=== PATIENT | male | born 1955 ===

== ENCOUNTER 2021-11-10 06:43 | Outpatient (REF) | payer OTHER, SELFPAY ==
[2021-11-10 07:11] LABS: MANUAL DIFF FLAG NO
[2021-11-10 07:26] LABS: Basophils Percent Auto 0.7 % (0-2); Eosinophils Absolute Auto 0.1 X10*3/uL (0.0-0.4); Eosinophils Percent Auto 2.9 % (0-4); Hematocrit 46.5 % (42.0-52.0); Hemoglobin 14.9 g/dl (14.0-18.0); Imm Gran Abs Auto 0.01 X10*3/uL (0.00-0.03); Imm Gran Pct Auto 0.2 % (0.0-0.4); Lymphocytes Absolute Auto 1.6 X10*3/uL (1.2-4.9); Mean Corpuscular Hemoglobin 30.1 pg (27.0-33.0); Mean Corpuscular Volume 93.9 fL (80.0-98.0); Mean Platelet Volume 10.3 fL (9.4-12.4); Monocytes Absolute Auto 0.4 X10*3/uL (0.1-1.2); Monocytes Percent Auto 8.6 % (2-11); Neutrophils Percent Auto 48.6 % (45-73); Platelet Count 228 X10*3/uL (160-400); Red Blood Count 4.95 X10*6/uL (4.60-5.80); Red Cell Distribution Width 12.2 % (11.0-16.0); White Blood Count 4.1 X10*3/uL (4.8-10.8)
[2021-11-10 07:41] LABS: Estimated Average Glucose 111 mg/dL; Hemoglobin A1c % 5.5 %
[2021-11-10 08:04] LABS: Alanine Aminotransferase 25 U/L (0-40); Albumin Level 4.4 g/dL (3.5-5.0); Alkaline Phosphatase 107 U/L (39-117); Anion Gap 12 (12-20); Aspartate Amino Transferase 18 U/L (5-37); Bilirubin Total 1.1 mg/dL (0.0-1.0); Blood Urea Nitrogen 13 mg/dL (9-16); Calcium 9.9 mg/dL (8.4-10.2); Carbon Dioxide 29 mmol/L (22-29); Chloride 105 mmol/L (96-108); Cholesterol 245 mg/dL; Estimated Glomerular Filt Rate > 60; Glucose Fasting 104 mg/dL (60-99); HDL Cholesterol 62 mg/dL; LDL Cholesterol Calculated 150 mg/dl; Potassium 4.5 mmol/L (3.3-5.1); Sodium 141 mmol/L (135-145); Total Protein 7.2 g/dL (6.5-8.0); Triglycerides 166 mg/dL
[2021-11-10 08:24] LABS: TSH reflex Free T4 1.83 uIU/mL (0.32-4.0)
[2021-11-10 08:45] LABS: Folate 10.7 ng/mL (> or = 4.0); Vitamin B12 312 pg/mL (200-900)
[2021-11-15 13:36] LABS: Vitamin D 25-OH, D2 <4 ng/mL; Vitamin D 25-OH, D3 32 ng/mL; Vitamin D 25-OH, Total 32 ng/mL (30-100)
== END 2021-11-10 06:44 | disposition home or self-care (01) ==
LOC: HO.LAB 06:43
PROVIDERS: PCP Nurse Practitioner Acute Care; Visit Provider Nurse Practitioner Acute Care
DX: G43.909 Migraine, unspecified, not intractable, without status migrainosus (principal); N40.0 Benign prostatic hyperplasia without lower urinary tract symptoms; E03.9 Hypothyroidism, unspecified
CPT/HCPCS: 36415; 80053; 80061; 82306; 82607; 82746; 83036; 84443; 85025

== ENCOUNTER 2021-12-29 09:52 | Outpatient (REF) | payer OTHER, SELFPAY ==
--- NOTE | ~2021-12-29 | XR_ITS ---
EXAMINATION: XR KNEE, LEFT CLINICAL INFORMATION: Pain COMPARISON: None TECHNIQUE: Four views of the left knee. FINDINGS: Bones and soft tissues are normal. No fracture or joint effusion. Alignment is anatomic. Joint spaces are well maintained. No abnormal soft tissue calcification. XR/XR knee LT 4V IMPRESSION: Normal left knee.
[2021-12-29 11:21] LABS: C Reactive Protein 0.35 mg/dL (< or = 0.50); Rheumatoid Factor < 15.0 IU/mL (<15.0)
[2021-12-29 11:37] LABS: Prostate Specific Antigen Scr 1.05 ng/mL (<0.05-4.0)
[2021-12-29 11:55] LABS: Erythrocyte Sedimentation Rate 2 MM/HR (0-15)
[2021-12-30 14:06] LABS: CRP High Sensitivity 3.2 mg/L
[2022-01-01 14:31] LABS: Cyclic Citrullinated Peptide <16 UNITS
== END 2021-12-29 09:53 | disposition home or self-care (01) ==
LOC: HO.LAB 09:52
PROVIDERS: Visit Provider Nurse Practitioner Family
DX: Z12.5 Encounter for screening for malignant neoplasm of prostate (principal); M25.562 Pain in left knee; N40.0 Benign prostatic hyperplasia without lower urinary tract symptoms
CPT/HCPCS: 36415; 73564; 82550; 84153; 85652; 86140; 86141; 86200; 86431

== ENCOUNTER → 2022-01-18 14:54 | Outpatient (REF) | payer OTHER, SELFPAY | LOC: HO.SL 14:54 | PROVIDERS: Visit Provider Nurse Practitioner Family | DX: G47.33 Obstructive sleep apnea (adult) (pediatric) (principal) | CPT/HCPCS: 95806 ==

== ENCOUNTER 2022-03-23 05:56 | Outpatient (REF) | payer OTHER, SELFPAY ==
[2022-03-23 07:24] LABS: Hematocrit 44.3 % (42.0-52.0); Hemoglobin 14.5 g/dl (14.0-18.0); Mean Corpuscular HGB Conc 32.7 g/dl (31.0-36.0); Mean Corpuscular Hemoglobin 30.5 pg (27.0-33.0); Mean Corpuscular Volume 93.1 fL (80.0-98.0); Mean Platelet Volume 10.8 fL (9.4-12.4); Platelet Count 232 X10*3/uL (160-400); Red Blood Count 4.76 X10*6/uL (4.60-5.80); Red Cell Distribution Width 12.3 % (11.0-16.0); White Blood Count 4.8 X10*3/uL (4.8-10.8)
[2022-03-23 07:41] LABS: Alanine Aminotransferase 29 U/L (0-40); Alkaline Phosphatase 92 U/L (39-117); Anion Gap 14 (12-20); Aspartate Amino Transferase 18 U/L (5-37); Bilirubin Total 0.8 mg/dL (0.0-1.0); Blood Urea Nitrogen 17 mg/dL (9-16); Calcium 9.1 mg/dL (8.4-10.2); Carbon Dioxide 27 mmol/L (22-29); Chloride 106 mmol/L (96-108); Cholesterol 222 mg/dL; Estimated Glomerular Filt Rate > 60; Glucose Fasting 82 mg/dL (60-99); HDL Cholesterol 64 mg/dL; LDL Cholesterol Calculated 131 mg/dl; Potassium 4.1 mmol/L (3.3-5.1); Sodium 143 mmol/L (135-145); Total Protein 6.5 g/dL (6.5-8.0); Triglycerides 139 mg/dL
[2022-03-23 08:04] LABS: TSH reflex Free T4 3.86 uIU/mL (0.32-4.0)
== END 2022-03-23 05:57 | disposition home or self-care (01) ==
LOC: HO.LAB 05:56
PROVIDERS: PCP Physician Assistant; Visit Provider Physician Assistant
DX: E03.8 Other specified hypothyroidism (principal); E06.3 Autoimmune thyroiditis
CPT/HCPCS: 36415; 80053; 80061; 84443; 85027

== ENCOUNTER 2022-04-02 14:08 | Outpatient (REF) | payer OTHER, SELFPAY ==
--- NOTE | ~2022-04-02 | CT_ITS ---
EXAMINATION: CT SINUS WITHOUT CONTRAST CLINICAL INFORMATION: Nasal polyp. COMPARISON: CT sinus noncontrast 06/04/2014 TECHNIQUE: Axial CT of the sinuses is performed without contrast. Additional 2-D coronal and sagittal reformatted images are generated on the CT workstation and uploaded to PACS. This CT examination was performed using dose optimization techniques as appropriate, variously including the following: *Automated exposure control *Adjustment of mA and/or kV according to patient size (this includes techniques or standardized protocols for targeted exams where dose is matched to indication/reason for exam; i.e. extremities or head) *Use of iterative reconstruction technique DLP: 99 mGy-cm FINDINGS: These sinuses show no air-fluid levels. The frontal, sphenoid, and ethmoid sinuses are well-aerated and clear. No mucosal thickening or polypoid mass. Left maxillary sinus has small retention cyst lateral antrum only 5 mm in height, similar to borderline decreased from prior CT 2014. Left ostiomeatal complex clear. Right maxillary sinusitis has 4 mm polyp/focal mucosal thickening at the maxillary side right ostiomeatal complex, no significant change. Remainder of the right maxillary sinus is well-aerated and clear. The nasal turbinates are symmetric. Mild pneumatization superior left again seen as incidental finding. There is borderline leftward bowing of the septum, stable. The nasopharynx is clear. The craniocervical junction is normal. Again, there are prominent bilateral styloid processes as previously described with mineralization stylohyoid ligaments. This may be associated with Lower Brule syndrome if applicable. The middle ears and mastoid air cells are clear. No fluid levels. CT/CT sinus wo con IMPRESSION: -No sinus fluid levels. No interval mucosal thickening or interval polypoid mass from CT 2014. -Small left maxillary antral retention cyst similar to borderline decreased. -Small polyp/focal mucosal thickening 3-4 mm maxillary side right ostiomeatal complex, no significant change.
--- NOTE | 2022-04-02 16:02 | PFT_ITS ---
FLOWS: FEV1 112% of predicted at 2.90 L. FVC 101% of predicted at 3.48 L. FEV1 to FVC ratio of 0.83. No bronchodilator response. LUNG VOLUMES: Total lung capacity 95% of predicted at 5.35 L. Residual volume 94% of predicted at 1.87 L. Slow vital capacity 96% of predicted at 3.48 L. Expiratory reserve volume 108% of predicted at 0.96 L. Diffusion capacity is normal. IMPRESSION: No obstructive or restrictive ventilatory defect. No bronchodilator response. Essentially normal pulmonary function test. MD CHLOE Monroy/MODL / [id number]
== END 2022-04-02 14:09 | disposition home or self-care (01) ==
LOC: HO.RESP 14:08
PROVIDERS: PCP Physician Assistant; Visit Provider Physician Assistant
DX: R06.02 Shortness of breath (principal); J33.9 Nasal polyp, unspecified
CPT/HCPCS: 70486; 94060; 94727; 94729

== ENCOUNTER → 2022-04-05 09:54 | Outpatient (BNVA) | payer OTHER, MEDICAID, SELFPAY | PROVIDERS: PCP Physician Assistant; Visit Provider Nurse Practitioner Family | DX: G47.33 Obstructive sleep apnea (adult) (pediatric) (principal) | CPT/HCPCS: 99202 ==

== ENCOUNTER 2022-04-06 15:28 | Emergency (ER) | payer OTHER, MEDICAID, SELFPAY ==
--- NOTE | ~2022-04-06 | CT_ITS ---
EXAMINATION: CT ABDOMEN AND PELVIS WITHOUT CONTRAST CLINICAL INFORMATION: Left lower quadrant pain. Concern for diverticulitis. COMPARISON: None TECHNIQUE: Multidetector volumetric imaging was performed from the superior aspect of the liver through the pubic symphysis. Sagittal and coronal reformatted images were obtained on the technologist's workstation. This CT examination was performed using dose optimization techniques as appropriate, variously including the following: *Automated exposure control *Adjustment of mA and/or kV according to patient size (this includes techniques or standardized protocols for targeted exams where dose is matched to indication/reason for exam; i.e. extremities or head) *Use of iterative reconstruction technique DLP: 449 mGy-cm FINDINGS: LUNG BASES: The visualized lung bases are unremarkable. LIVER, GALLBLADDER, AND BILIARY TREE: The liver is normal in size, shape, and attenuation. No focal hepatic lesion or biliary ductal dilatation is present. Small calcified gallstone at the neck of the gallbladder. No gallbladder wall thickening or edema around the gallbladder. No bile duct dilatation. PANCREAS: Unremarkable. SPLEEN: Unremarkable. ADRENAL GLANDS: Unremarkable. KIDNEYS AND URETERS: The kidneys are normal in size, shape, and attenuation. No hydronephrosis, hydroureter, or calculi seen. No perinephric stranding. BLADDER: Unremarkable. GASTROINTESTINAL TRACT: The small and large bowel are unremarkable. The appendix is unremarkable. ABDOMINAL WALL: No significant hernia is appreciated. MESENTERY: There is epiploic appendagitis in the left lower quadrant in the pericolonic fat which lies adjacent to the junction of the descending colon and sigmoid colon.. No free fluid or free air. No abscess. LYMPH NODES: Normal. VASCULAR: Unremarkable. PELVIC VISCERA: Unremarkable. OSSEOUS STRUCTURES: Unremarkable. CT/CT abdomen pelvis wo con IMPRESSION: There is epiploic appendagitis in the left lower quadrant in the pericolonic fat which lies adjacent to the junction of the descending colon and sigmoid colon.. No acute change of bowel. Fleischner guidelines were followed.
[2022-04-06 16:53] VITALS: BP 134/72; PULSE 55; RESP 16; TEMP 36.6; O2SAT 99; BMI 25.6
[2022-04-06 18:52] LABS: Hematocrit 44.2 % (42.0-52.0); Hemoglobin 14.5 g/dl (14.0-18.0); Mean Corpuscular HGB Conc 32.8 g/dl (31.0-36.0); Mean Corpuscular Hemoglobin 30.4 pg (27.0-33.0); Mean Corpuscular Volume 92.7 fL (80.0-98.0); Mean Platelet Volume 10.2 fL (9.4-12.4); Platelet Count 226 X10*3/uL (160-400); Red Blood Count 4.77 X10*6/uL (4.60-5.80); Red Cell Distribution Width 12.3 % (11.0-16.0); White Blood Count 4.7 X10*3/uL (4.8-10.8)
[2022-04-06 19:06] LABS: Anion Gap 13 (12-20); Blood Urea Nitrogen 18 mg/dL (9-16); Calcium 9.6 mg/dL (8.4-10.2); Carbon Dioxide 29 mmol/L (22-29); Chloride 105 mmol/L (96-108); Creatinine Clr Calc Pharmacy 54.1; Estimated Glomerular Filt Rate > 60; Glucose Random 111 mg/dL (60-115); Potassium 4.9 mmol/L (3.3-5.1); Sodium 142 mmol/L (135-145)
[2022-04-06 21:14] VITALS: BP 156/71; PULSE 54; O2SAT 97
[2022-04-06 21:22] VITALS: BP 159/75; PULSE 52; RESP 20; TEMP 36.6; O2SAT 100
[2022-04-06 23:02] VITALS: BP 135/70; PULSE 61; RESP 18; O2SAT 97
--- NOTE | 2022-04-06 23:06 | ED.ABDPAIN ---
HPI - Abdominal Pain General Chief Complaint: Abdominal Pain Stated Complaint: lower l side abd pain Time Seen by Provider: 04/06/22 23:05 Source: patient Mode of arrival: ambulatory Limitations: no limitations History of Present Illness HPI narrative: Patient with no significant abdominal complaints in the past had rectal bleed for 1 week started 2 weeks ago after taking NSAID without any significant abdominal pain stool was brown mixed with bright red blood lasted for 1 week for 1 week patient been doing fine the last 2 days patient noticed pain in the left lower quadrant with normal bowel movements pain is getting worse since last night worse on ambulation and while moving bowels no fever no chills no nausea no vomiting feels hungry no history of diverticulitis patient does have history of hemorrhoids status post multiple rectal surgeries Related Data Home Medications Medication Instructions Recorded Confirmed fluticasone propionate 50 2 spray intranasal DAILY 12/29/21 03/22/22 mcg/actuation nasal spray,suspension Previous Rx's Medication Instructions Recorded prednisolone acetate 1 % eye 1 drp ophthalmic (eye) TID #10 mL 11/09/21 drops,suspension CPAP (CPAP Machine/Device) #1 ea 03/06/22 albuterol sulfate 90 mcg/actuation 1 inh inhalation QID PRN shortness 03/06/22 aerosol inhaler of breath or wheezing 30 days #8.5 grams levothyroxine 75 mcg tablet 75 mcg PO DAILY #90 tabs 03/27/22 tamsulosin 0.4 mg capsule 0.4 mg PO DAILY #90 caps 03/27/22 Allergies Allergy/AdvReac Type Severity Reaction Status Date / Time aspirin Allergy Unknown nausa Verified 04/05/22 09:59 diclofenac AdvReac Mild blood in Verified 04/05/22 09:59 stools Review of Systems Review of Systems Yes all other systems are reviewed and are negative [facility] Past Medical History Medical History BPH (benign prostatic hyperplasia) Hypothyroid Surgical History History of hemorrhoidectomy History of inguinal hernia repair Family History Family History Mother No problems noted. Father No problems noted. Social History Social History Housing: House Alcohol intake: never Patient Tobacco Use Status: Never used Tobacco e-Cigarette/Vaping Use: Never Used Second Hand Smoke Exposure: No Advance Directives: No service: No Current occupational status: retired Cognitive needs: No Hearing needs: No Vision needs: Yes (glasses) Physical Exam ED Vital Signs: Vital Signs - 24 hr 04/06/22 16:53 04/06/22 21:14 04/06/22 21:22 Temperature 97.8 F 97.9 F Pulse Rate 55 54 52 Respiratory Rate 16 20 Blood Pressure 134/72 156/71 H 159/75 H Pulse Oximetry 99 97 100 Oxygen Delivery Method Room Air Room Air Room Air 04/06/22 23:02 Temperature Pulse Rate 61 Respiratory Rate 18 Blood Pressure 135/70 Pulse Oximetry 97 Oxygen Delivery Method Room Air BMI result Body Mass Index 25.6 Appearance: Alert. Oriented X3. No acute distress. Eyes: No pallor or icterus ENT: Pharynx normal. Oral Mucosa moist Neck: Normal inspection. Neck supple. CVS: Normal heart rate and rhythm. Pulses normal. Respiratory: No respiratory distress. Equal air entry bilateral, no wheezing/rales/rhonchi Abdomen: Soft , deep tenderness suprapubic and left lower quadrant Bowel sounds are present, no mass palpable, no CVA tenderness Skin: Skin warm and dry. Normal skin color. Normal skin turgor. Extremities: No lower extremity edema. No calf tenderness Neuro: Oriented X 3. No motor deficit. MDM - Abdominal Pain MDM Narrative Medical decision making narrative: Patient with lower abdominal pain CT scan negative for anything acute except epiploic appendagitis patient refused take any pain medication feeling much better discharge patient home patient does have history of hemorrhoids and had multiple surgeries in the past likely the cause for rectal bleed 1 week ago Lab Data Attestation: I reviewed the patient's lab results. Result diagrams: 04/06/22 18:45 04/06/22 18:45 Labs: Lab Results 04/06/22 04/06/22 Range/Units 18:45 18:45 WBC 4.7 L (4.8-10.8) X10*3/uL RBC 4.77 (4.60-5.80) X10*6/uL Hgb 14.5 (14.0-18.0) g/dl Hct 44.2 (42.0-52.0) % MCV 92.7 (80.0-98.0) fL MCH 30.4 (27.0-33.0) pg MCHC 32.8 (31.0-36.0) g/dl RDW 12.3 (11.0-16.0) % Plt Count 226 (160-400) X10*3/uL MPV 10.2 (9.4-12.4) fL Absolute Nucleated RBC 0.000 (0.0-0.012) X10*3/uL Nucleated RBC % (auto) 0.0 (0.0-0.2) /100WBC Sodium 142 (135-145) mmol/L Potassium 4.9 (3.3-5.1) mmol/L Chloride 105 (96-108) mmol/L Carbon Dioxide 29 (22-29) mmol/L Anion Gap 13 (12-20) BUN 18 H (9-16) mg/dL Creatinine 1.08 (0.5-1.4) mg/dL Estim Creat Clear Calc 54.1 Estimated GFR > 60 Random Glucose 111 (60-115) mg/dL Calcium 9.6 (8.4-10.2) mg/dL Imaging Data CT scan - abdomen: Radiologist's impression: CT/CT abdomen pelvis wo con IMPRESSION: There is epiploic appendagitis in the left lower quadrant in the pericolonic fat which lies adjacent to the junction of the descending colon and sigmoid colon.. No acute change of bowel. ? Discharge Plan Discharge Clinical Impression: Epiploic appendagitis Patient Disposition: Home, Self-Care Instructions: Abdominal Pain (ED) Additional Instructions: The pain in abdomen is from epiploic appendagitis which is from decreased blood supply to the fat outside the bowel loops Treatment is usually pain medication If pain gets worse need to see a surgeon or come back to the ER Prescriptions: No Action prednisolone acetate 1 % drops,suspension 1 drp ophthalmic (eye) TID Qty: 10 0RF tamsulosin 0.4 mg capsule 0.4 mg PO DAILY Qty: 90 1RF levothyroxine 75 mcg tablet 75 mcg PO DAILY Qty: 90 1RF (DME) CPAP Machine/Device Device See Rx Instructions .Route Qty: 1 0RF Rx Instructions: As directed albuterol sulfate 90 mcg/actuation HFA aerosol inhaler 1 inh inhalation QID PRN (Reason: shortness of breath or wheezing) 30 Days Qty: 8.5 0RF fluticasone propionate 50 mcg/actuation spray,suspension 2 spray intranasal DAILY Referrals: Mikey Farrar MD [Physician] - 1 week
[2022-04-06] MEDS: 0.9 % Sodium Chloride 1,000 ML 999 ML IV (23:52)
== END 2022-04-07 00:35 | disposition home or self-care (01) ==
PROVIDERS: Emergency Provider Internal Medicine; PCP Physician Assistant
DX: R10.32 Left lower quadrant pain (principal); K63.89 Other specified diseases of intestine; Z79.899 Other long term (current) drug therapy
CPT/HCPCS: 36415; 74176; 80048; 85027; 96374; 99284

== ENCOUNTER → 2022-04-11 08:20 | Outpatient (BNVA) | payer OTHER, MEDICAID, SELFPAY | PROVIDERS: PCP Physician Assistant; Visit Provider Physician Assistant | DX: Z12.11 Encounter for screening for malignant neoplasm of colon (principal); K21.9 Gastro-esophageal reflux disease without esophagitis; K62.5 Hemorrhage of anus and rectum; K64.9 Unspecified hemorrhoids; G47.33 Obstructive sleep apnea (adult) (pediatric); Z78.9 Other specified health status | CPT/HCPCS: 99202; 99212 ==

== ENCOUNTER 2022-10-01 09:26 | Outpatient (REF) | payer OTHER, SELFPAY ==
--- NOTE | ~2022-10-01 | XR_ITS ---
EXAMINATION: XR LUMBOSACRAL SPINE WITH OBLIQUES CLINICAL INFORMATION: Low back pain. COMPARISON: CT abdomen of 04/06/2022. TECHNIQUE: AP, both oblique, and lateral views of the lumbar spine. Lateral view of the lumbosacral junction. FINDINGS: There are 5 nonrib-bearing lumbar vertebra. No acute fracture, spondylolisthesis, spondylolysis is identified. Disc spaces are maintained except for mild narrowing of the L5-S1 disc space. There is bilateral facet arthropathy noted at the L4-L5 and L5-S1 levels. Pedicles intact. Sacroiliac joints unremarkable. XR/XR lumbar spine 4V min IMPRESSION: Facet arthropathy L4-S1.
== END 2022-10-01 09:27 | disposition home or self-care (01) ==
LOC: HO.XRAY 09:26
PROVIDERS: PCP Physician Assistant; Visit Provider Nurse Practitioner Acute Care
DX: M54.50 Low back pain, unspecified (principal); M79.605 Pain in left leg
CPT/HCPCS: 72110

== ENCOUNTER → 2022-10-10 07:38 | Outpatient (BNVA) | payer OTHER, SELFPAY | PROVIDERS: PCP Physician Assistant; Visit Provider Nurse Practitioner Family | DX: G47.33 Obstructive sleep apnea (adult) (pediatric) (principal); Z99.89 Dependence on other enabling machines and devices | CPT/HCPCS: 99212 ==

== ENCOUNTER 2022-12-04 06:58 | Outpatient (REF) | payer OTHER, SELFPAY ==
[2022-12-04 07:58] LABS: Hematocrit 46.2 % (42.0-52.0); Mean Corpuscular HGB Conc 32.5 g/dl (31.0-36.0); Mean Corpuscular Hemoglobin 30.1 pg (27.0-33.0); Mean Corpuscular Volume 92.8 fL (80.0-98.0); Mean Platelet Volume 10.6 fL (9.4-12.4); Platelet Count 214 X10*3/uL (160-400); Red Blood Count 4.98 X10*6/uL (4.60-5.80); Red Cell Distribution Width 11.7 % (11.0-16.0)
[2022-12-04 08:50] LABS: Alanine Aminotransferase 20 U/L (0-40); Albumin Level 4.4 g/dL (3.5-5.0); Alkaline Phosphatase 117 U/L (39-117); Anion Gap 15 (12-20); Aspartate Amino Transferase 19 U/L (5-37); Blood Urea Nitrogen 17 mg/dL (9-16); Calcium 9.6 mg/dL (8.4-10.2); Carbon Dioxide 26 mmol/L (22-29); Chloride 106 mmol/L (96-108); Cholesterol 275 mg/dL; Estimated Glomerular Filt Rate > 60; Glucose Fasting 85 mg/dL (60-99); HDL Cholesterol 54 mg/dL; LDL Cholesterol Calculated 185 mg/dl; Potassium 4.6 mmol/L (3.3-5.1); Prostate Specific Antigen Scr 1.39 ng/mL (<0.05-4.0); Sodium 142 mmol/L (135-145); TSH reflex Free T4 0.57 uIU/mL (0.32-4.0); Total Protein 6.9 g/dL (6.5-8.0); Triglycerides 184 mg/dL
== END 2022-12-04 06:59 | disposition home or self-care (01) ==
LOC: HO.LAB 06:58
PROVIDERS: PCP Physician Assistant; Visit Provider Physician Assistant
DX: Z12.5 Encounter for screening for malignant neoplasm of prostate (principal); E03.8 Other specified hypothyroidism; E06.3 Autoimmune thyroiditis; N52.9 Male erectile dysfunction, unspecified
CPT/HCPCS: 36415; 80053; 80061; 84153; 84443; 85027

== ENCOUNTER 2023-01-04 09:48 | Outpatient (REF) | payer OTHER, SELFPAY ==
--- NOTE | ~2023-01-04 | XR_ITS ---
EXAMINATION: XR RIGHT WRIST XR LEFT WRIST XR RIGHT FOOT XR LEFT FOOT CLINICAL INFORMATION: Rheumatoid arthritis. COMPARISON: None TECHNIQUE: AP, lateral and oblique views of each hand/wrist. AP, lateral and oblique views of each foot. FINDINGS: RIGHT Hand/Wrist: Alignment is anatomic. Mild diffuse interphalangeal joint space narrowing. Joint space narrowing of the first MTP joint. No bony erosions. No displaced fracture. Mild generalized prominence of the soft tissues. Foot: Alignment is anatomic. Mild diffuse interphalangeal joint space narrowing. No bony erosions. No displaced fracture. LEFT Hand/Wrist: Alignment is anatomic. Mild diffuse interphalangeal joint space narrowing. Joint space narrowing of the first MTP joint. No bony erosions. No displaced fracture. Mild generalized prominence of the soft tissues. Foot: Alignment is anatomic. Mild diffuse interphalangeal joint space narrowing. No bony erosions. No displaced fracture. XR/XR hand wrist LT IMPRESSION: As above.
--- NOTE | ~2023-01-04 | XR_ITS ---
EXAMINATION: XR RIGHT WRIST XR LEFT WRIST XR RIGHT FOOT XR LEFT FOOT CLINICAL INFORMATION: Rheumatoid arthritis. COMPARISON: None TECHNIQUE: AP, lateral and oblique views of each hand/wrist. AP, lateral and oblique views of each foot. FINDINGS: RIGHT Hand/Wrist: Alignment is anatomic. Mild diffuse interphalangeal joint space narrowing. Joint space narrowing of the first MTP joint. No bony erosions. No displaced fracture. Mild generalized prominence of the soft tissues. Foot: Alignment is anatomic. Mild diffuse interphalangeal joint space narrowing. No bony erosions. No displaced fracture. LEFT Hand/Wrist: Alignment is anatomic. Mild diffuse interphalangeal joint space narrowing. Joint space narrowing of the first MTP joint. No bony erosions. No displaced fracture. Mild generalized prominence of the soft tissues. Foot: Alignment is anatomic. Mild diffuse interphalangeal joint space narrowing. No bony erosions. No displaced fracture. XR/XR hand wrist RT IMPRESSION: As above.
--- NOTE | ~2023-01-04 | XR_ITS ---
EXAMINATION: XR RIGHT WRIST XR LEFT WRIST XR RIGHT FOOT XR LEFT FOOT CLINICAL INFORMATION: Rheumatoid arthritis. COMPARISON: None TECHNIQUE: AP, lateral and oblique views of each hand/wrist. AP, lateral and oblique views of each foot. FINDINGS: RIGHT Hand/Wrist: Alignment is anatomic. Mild diffuse interphalangeal joint space narrowing. Joint space narrowing of the first MTP joint. No bony erosions. No displaced fracture. Mild generalized prominence of the soft tissues. Foot: Alignment is anatomic. Mild diffuse interphalangeal joint space narrowing. No bony erosions. No displaced fracture. LEFT Hand/Wrist: Alignment is anatomic. Mild diffuse interphalangeal joint space narrowing. Joint space narrowing of the first MTP joint. No bony erosions. No displaced fracture. Mild generalized prominence of the soft tissues. Foot: Alignment is anatomic. Mild diffuse interphalangeal joint space narrowing. No bony erosions. No displaced fracture. XR/XR foot LT min 3V IMPRESSION: As above.
--- NOTE | ~2023-01-04 | XR_ITS ---
EXAMINATION: XR RIGHT WRIST XR LEFT WRIST XR RIGHT FOOT XR LEFT FOOT CLINICAL INFORMATION: Rheumatoid arthritis. COMPARISON: None TECHNIQUE: AP, lateral and oblique views of each hand/wrist. AP, lateral and oblique views of each foot. FINDINGS: RIGHT Hand/Wrist: Alignment is anatomic. Mild diffuse interphalangeal joint space narrowing. Joint space narrowing of the first MTP joint. No bony erosions. No displaced fracture. Mild generalized prominence of the soft tissues. Foot: Alignment is anatomic. Mild diffuse interphalangeal joint space narrowing. No bony erosions. No displaced fracture. LEFT Hand/Wrist: Alignment is anatomic. Mild diffuse interphalangeal joint space narrowing. Joint space narrowing of the first MTP joint. No bony erosions. No displaced fracture. Mild generalized prominence of the soft tissues. Foot: Alignment is anatomic. Mild diffuse interphalangeal joint space narrowing. No bony erosions. No displaced fracture. XR/XR foot RT min 3V IMPRESSION: As above.
== END 2023-01-04 09:49 | disposition home or self-care (01) ==
LOC: HO.XRAY 09:48
PROVIDERS: PCP Physician Assistant; Visit Provider Student in an Organized Health Care Education/Training Program
DX: M06.9 Rheumatoid arthritis, unspecified (principal)
CPT/HCPCS: 73110; 73130; 73630; 99202

== ENCOUNTER 2023-01-04 10:44 | Outpatient (REF) | payer OTHER, SELFPAY ==
[2023-01-04 13:24] LABS: MANUAL DIFF FLAG NO
[2023-01-04 13:34] LABS: Basophils Percent Auto 1.1 % (0-2); Eosinophils Absolute Auto 0.1 X10*3/uL (0.0-0.4); Eosinophils Percent Auto 1.9 % (0-4); Hematocrit 44.9 % (42.0-52.0); Hemoglobin 14.8 g/dl (14.0-18.0); Imm Gran Abs Auto 0.01 X10*3/uL (0.00-0.03); Imm Gran Pct Auto 0.3 % (0.0-0.4); Lymphocytes Absolute Auto 1.4 X10*3/uL (1.2-4.9); Lymphocytes Percent Auto 37.8 % (20-40); Mean Corpuscular Hemoglobin 30.6 pg (27.0-33.0); Mean Corpuscular Volume 92.8 fL (80.0-98.0); Mean Platelet Volume 11.2 fL (9.4-12.4); Monocytes Absolute Auto 0.5 X10*3/uL (0.1-1.2); Monocytes Percent Auto 12.6 % (2-11); Neutrophils Absolute Auto 1.7 x10*3/uL (2.0-8.3); Neutrophils Percent Auto 46.3 % (45-73); Platelet Count 232 X10*3/uL (160-400); Red Blood Count 4.84 X10*6/uL (4.60-5.80); Red Cell Distribution Width 12.1 % (11.0-16.0); White Blood Count 3.7 X10*3/uL (4.8-10.8)
[2023-01-04 13:49] LABS: Alanine Aminotransferase 19 U/L (0-40); Albumin Level 4.4 g/dL (3.5-5.0); Alkaline Phosphatase 118 U/L (39-117); Anion Gap 11 (12-20); Aspartate Amino Transferase 17 U/L (5-37); Bilirubin Total 0.7 mg/dL (0.0-1.0); Blood Urea Nitrogen 20 mg/dL (9-16); C Reactive Protein 0.34 mg/dL (< or = 0.50); Calcium 9.9 mg/dL (8.4-10.2); Carbon Dioxide 27 mmol/L (22-29); Chloride 108 mmol/L (96-108); Estimated Glomerular Filt Rate > 60; Glucose Random 97 mg/dL (60-115); Potassium 4.1 mmol/L (3.3-5.1); Rheumatoid Factor < 13.0 IU/mL (<15.0); Sodium 142 mmol/L (135-145); Total Protein 7.1 g/dL (6.5-8.0)
[2023-01-04 14:20] LABS: Erythrocyte Sedimentation Rate 2 MM/HR (0-15)
[2023-01-07 13:13] LABS: Cyclic Citrullinated Peptide <16 UNITS
== END 2023-01-04 10:45 | disposition home or self-care (01) ==
LOC: HO.10HDL 10:44
PROVIDERS: Visit Provider Student in an Organized Health Care Education/Training Program
DX: M06.9 Rheumatoid arthritis, unspecified (principal)
CPT/HCPCS: 36415; 80053; 85025; 85652; 86140; 86200; 86431

== ENCOUNTER 2023-01-16 08:00 | Outpatient (RCR) | payer OTHER, SELFPAY ==
--- NOTE | 2022-12-10 12:02 | MHC.PT.EP ---
[facility] [place] Office [place] Office [place] Office [address] Shannon Verma [address] [phone] F: [phone] F: [phone] F: [phone] F: [phone] Physical Therapy Plan of Care Date of Evaluation: Date of Surgery: Diagnosis: THORACIC, THORACOLUMBAR AND LUMBOSACRAL INTERVERT DISC DISORDER Assessment: 67 YO MALE REF TO PT FOR LBP AND RADIC Lt LE SXS x 4-5 MONTHS. HE IS RETIRED AND RESIDES W HIS IN A 2 LEVEL HOME. Pt HAS DECR POSTURAL AWARENESS, DECR FLEXIB IN Lt > Rt LE, HABITUAL USE OF TRUNK FLEX, DEFICIENT SQUAT MECHANICS, DECR LUMBOPELVIC STAB, AND INTERMITTENT Lt LE RADIC SXS L4/L5/S1 DERM. RECENT XRAYS REVEALED IN PART, There is bilateral facet arthropathy noted at the L4-L5 and L5-S1 levels . Pt WOULD BENEFIT FROM PT TO ADDRESS THE ABOVE FINDINGS, DEV A HEP, PAIN MGMT, AND SX MGMT TECHN. Frequency and Duration: The patient will be seen 1 x WK x 6 WKS Short Term Goals: *DECR LBP TO 2-3/10 AND DECR Lt LE SXS BY 75% *Pt DEMON APPROP SQUAT MECH W 3:3 SIMUL ADLS *IMPROVE HIP FLEXIB Retirement Goals: *Pt WILL IMPROVE LUMBOPELVIC/ LEs STRENGTH, WFL SYMMETRY *Pt RESUME REG ADLs AND FITNESS ROUTINE EVIDENT W IMPROVED OSWESTRY SCORE (AT EVAL ) *Pt INDEP W PROGR HEP AND SELF-SX MGMT TECHN Treatment Plan: Modalities to reduce pain, spasms and effusion. Manual therapy to restore motion and function. Therapeutic exercise to improve strength and flexibility. Neuromuscular re-education for posture and balance. Therapeutic activities to return to functional activities of daily living. Electronically signed by: GRAZYNA ALMAGUER,PT Please sign and return to therapist. Thank you for your referral.
--- NOTE | 2023-02-22 13:15 | MHC.PT.DC ---
[facility] [place] Office [place] Office [place] [facility] [address] Shannon Verma [address] [phone] F: [phone] F: [phone] F: [phone] F: [phone] Physical Therapy Discharge Report Diagnosis: THORACIC, THORACOLUMBAR AND LUMBOSACRAL INTERVERT DISC DISORDER Date of Surgery: Date of Evaluation: 12/10/22 Date of Discharge: 02/22/23 Treatments to Date: 4 Cancellations to Date: 1 No Shows to Date: 0 Discharge Status: Achieved Goals Improved Function Independent with HEP Discharge Summary: THE Pt ADVANCED W PT INTERVENTION FOR MULTIPLE AREAS OF PAIN- HIS SXS LOCALIZED AND HE HAD MINIMAL LBP. THE Pt IS INDEP W HEP AND DEMON IMPROVED BODY MECH. HE IS D/C AT THIS TIME HE FELT READY TO CONT W HEP. Electronically signed by: GRAZYNA ALMAGUER,PT Please sign and return to therapist. Thank you for your referral.
== END 2023-02-22 13:15 | disposition home or self-care (01) ==
LOC: HO.PT 08:00
PROVIDERS: PCP Physician Assistant; Visit Provider Physician Assistant
DX: M51.9 Unspecified thoracic, thoracolumbar and lumbosacral intervertebral disc disorder (principal)
CPT/HCPCS: 97110; 97161; 97530

== ENCOUNTER 2023-02-06 10:22 | Day surgery (SDC) | payer OTHER, SELFPAY ==
[2023-02-01 15:03] VITALS: BMI 27.1
[2023-02-04 11:00] VITALS: BMI 26.6
--- NOTE | 2023-02-05 11:44 | P.CONAN_ITS ---
Documented by User: Vicky Rocha NP 02/05/23 11:44 HPI - Anesthesia Eval Consult details Narrative: 67yo M for Upper Endoscopy and Colonoscopy [facility] Active Problems Active Problems: All Active Problems (Updated 01/09/23 @ 09:14 by Ramon Ugalde PA-C) BPPV (benign paroxysmal positional vertigo) (Acute) Hyperlipidemia (Acute) Lumbar radicular pain (Acute) Low back pain radiating to left leg (Acute) Erectile dysfunction (Acute) Tendinitis of extensor tendon of hand (Acute) Bilateral hand pain (Acute) Cyst of maxillary sinus (Acute) Acid reflux (Acute) Poor historian (Acute) Hemorrhoids (Acute) Rectal bleeding (Acute) Encounter for screening colonoscopy (Acute) AYESHA (generalized anxiety disorder) (Acute) Moderate recurrent major depression (Acute) Bloody stools (Acute) BRAXTON (obstructive sleep apnea) (Acute) SOB (shortness of breath) on exertion (Acute) Keratosis (Acute) Moderate obstructive sleep apnea (Acute) Polyarthralgia (Acute) Hypothyroid (Acute) BPH (benign prostatic hyperplasia) (Acute) Multiple allergies (Acute) Corneal irritation of right eye (Acute) Migraine (Acute) Allergic rhinitis (Acute) Ocular pain, right eye (Acute) Encounter to establish care (Acute) [place] of right eye (Acute) Mild depression (Acute) Anxiety (Acute) Physical exam (Acute) Sleep apnea (Acute) Anxiety and depression (Acute) Left knee pain (Acute) Hand joint pain (Acute) Past Medical History Medical History BPH (benign prostatic hyperplasia) Hypothyroid Family History Family History Mother No problems noted. Father No problems noted. Surgical History Surgical History History of hemorrhoidectomy History of inguinal hernia repair Hx of colonoscopy Social History Social History Housing: House Are you a primary healthcare science specialist to a significant other at home: No Do you presently have visiting nurse or other home services: No Alcohol intake: never Patient Tobacco Use Status: Never used Tobacco e-Cigarette/Vaping Use: Never Used Second Hand Smoke Exposure: No Use of substances other than those prescribed or required for medical reasons: No Have you been hit, kicked, punched, or otherwise hurt by someone within the past year? If so, by whom?: No Confucianist Healthcare Practices: Synagogue Are you DNR?: No Advance Directives: No Advance Directives Information Provided: Yes Advance Directives on File: No Recently lost weight without trying: No Nutrition Risks: No Nutritional Risk Poor oral hygiene: No service: No Current occupational status: previously employed and retired Current occupation: used to work in [employer] retired 2019 Cognitive needs: No Hearing needs: No Vision needs: Yes (glasses) Meds Allergies Allergy/AdvReac Type Severity Reaction Status Date / Time aspirin AdvReac Intermediate blood in Verified 02/04/23 10:59 stools diclofenac AdvReac Intermediate blood in Verified 02/04/23 10:59 stools NSAIDS (Non-Steroidal AdvReac Intermediate Blood in Verified 02/04/23 10:59 Anti-Inflamma stools Home Medications Medication Instructions Recorded Confirmed Last Taken Type tadalafil 5 mg tablet 5 mg PO DAILY 11/13/22 01/09/23 Unknown History Exam Exam Date and Time: February 05, 2023 1144 Height,Weight and Vital Signs: Height 5 ft 3 in Weight 68.039 kg Pertinent Lab Results Pertinent Lab Results: Laboratory Tests 01/04/23 01/04/23 10:47 10:47 WBC 3.7 L Hgb 14.8 Hct 44.9 Plt Count 232 Sodium 142 Potassium 4.1 Chloride 108 Carbon Dioxide 27 BUN 20 H Creatinine 1.04 Assessment and Plan Assessment Anesthesia Assessment: Chart Reviewed Documented by User: Alia Stephens MD 02/06/23 10:44 PMFSH Past Medical History Medical History BPH (benign prostatic hyperplasia) Hypothyroid Family History Family History Mother No problems noted. Father No problems noted. Family history of problems with anesthesia: No Surgical History Surgical History History of hemorrhoidectomy History of inguinal hernia repair Hx of colonoscopy History of Problems with Anesthesia: No Social History Social History Housing: House Are you a primary healthcare science specialist to a significant other at home: No Do you presently have visiting nurse or other home services: No Alcohol intake: never Patient Tobacco Use Status: Never used Tobacco e-Cigarette/Vaping Use: Never Used Second Hand Smoke Exposure: No Use of substances other than those prescribed or required for medical reasons: No Have you been hit, kicked, punched, or otherwise hurt by someone within the past year? 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 Cognitive needs: No Hearing needs: No Vision needs: Yes (glasses) Meds Allergies Allergy/AdvReac Type Severity Reaction Status Date / Time aspirin AdvReac Intermediate blood in Verified 02/04/23 10:59 stools diclofenac AdvReac Intermediate blood in Verified 02/04/23 10:59 stools NSAIDS (Non-Steroidal AdvReac Intermediate Blood in Verified 02/04/23 10:59 Anti-Inflamma stools Home Medications Medication Instructions Recorded Confirmed Last Taken Type tadalafil 5 mg tablet 5 mg PO DAILY 11/13/22 01/09/23 Unknown History Exam Airway Mallampati Class: II (caps laterally) TM Dist: >3cm Neck ROM: Full Heart: rrr Lungs: cta Assessment and Plan Assessment Anesthesia Assessment: Anesthesia Plan Discussed Final Anesthetic Review Family History of Problems with Anesthesia: No History of Problems with Anesthesia: No NPO: Yes ASA Class: II Final Preanesthetic Review: No Changes in Pt Med Stat, Meds/Allgs Chart Reviewed and Consent Obtained/Reviewed Patient Risk: Intermediate Procedure Risk: Intermediate Anesthetic Plan Anesthetic Plan: MAC: Disposition: Standard PACU
[2023-02-06] MEDS: Lactated Ringers 1,000 ML 100 ML IVCONT (10:59)
[2023-02-06 11:00] VITALS: BP 146/76; PULSE 73; RESP 16; TEMP 36.1; O2SAT 99
--- NOTE | 2023-02-06 11:14 | MHC.SHP ---
Pre-Procedural Eval Section A Date of Service: 02/06/23 Section B Chief Complaint: GERD and screening Relevant Family History (Specify if Yes): No Relevant Social History: None Present Medications: see Short Stay Collaborative assessment Medical History: Significant History (BPH (benign prostatic hyperplasia) Hypothyroid, [place], migraine) History of Previous Operations: Relevant previous surgery/procedure and date(s) (History of hemorrhoidectomy History of inguinal hernia repair Hx of colonoscopy) Allergies: Allergies Allergy/AdvReac Type Severity Reaction Status Date / Time aspirin AdvReac Intermediate blood in Verified 02/04/23 10:59 stools diclofenac AdvReac Intermediate blood in Verified 02/04/23 10:59 stools NSAIDS (Non-Steroidal AdvReac Intermediate Blood in Verified 02/04/23 10:59 Anti-Inflamma stools Review of Systems Sugical H&P ROS: Negative: Constitution, Cardiovascular, Respiratory, Neurological, Psychiatric, Hem-Onc, Allergic/Immunologic, Gastrointestinal, Genitourinary, Musculoskeletal, Integumentary, Endocrine and Eyes/Ears/Nose/Throat Exam Surgical H&P Exam: Normal: HEENT, Normal: Heart, Normal: Lungs, Normal: Extremities, Normal: Abdomen, Normal: Skin and Normal: Neurological Plan Diagnosis/Plan: Unchanged I have reviewed the history and physical and performed a pertinent physical examination on my patient. No changes have occurred unless specified. Time Spent With Patient Time: Total time managing care of this patient today ____ minutes.
--- NOTE | 2023-02-06 11:17 | P.OP_ITS ---
Operative Note Operative Note Date of Service: 02/06/23 Narrative: Operative Information Procedure Description: EGD, Colonoscopy Indication: GERD, screening Anesthesia: MAC FLEXIBLE TRANSORAL UPPER GASTROINTESTINAL ENDOSCOPY AND COLONOSCOPY PROCEDURE NOTE UPPER ENDOSCOPY Consent: Indications for the procedure and potential complications of bleeding, perforation, reaction to medications and missed diagnosis were discussed with the patient and informed consent was obtained. Instrument: Olympus GIF H 190 J mid size upper endoscope Monitoring: Vital signs and clinical assessment, continuous EKG monitoring, Pulse oximetry, Carbon Dioxide monitoring and blood pressure monitoring were done throughout the procedure. Procedure: The patient was placed in the left lateral decubitis position and pre-procedure medications were administered and a bite block was placed. The endoscope was inserted into the mouth and advanced under direct vision to the third part of duodenum. A careful inspection was made as the upper endoscope was withdrawn including a retroflexed examination of the proximal stomach; Findings and interventions are described below. Findings: Larynx:normal Esophagus: GE junction at 36 cm, diaphragm hiatus at 40 cm, consistent with 4 cm sliding hiatal hernia, distal esophagus bx taken Stomach: Mild erythema. Biopsies were obtained. Grade 3 flap valve on retroflexed examination of the cardia with incompetent LES Duodenum: Normal bulb and descending duodenum, Intervention: Biopsies as noted above COLONOSCOPY Instrument: Olympus variable stiffness pediatric scope 190L Colonoscopy Monitoring: Vital signs and clinical assessment, continuous EKG monitoring, Pulse oximetry, Carbon Dioxide monitoring and blood pressure monitoring were done throughout the procedure. Colon withdrawal time was 6 minutes. Procedure: The patient was placed in the left lateral decubitis position and pre-procedure medications were administered. After a digital rectal examination of the ano-rectum, the video colonoscope was inserted into the rectum and advanced through the colon to the cecum/TI. The colonoscope was slowly withdrawn in a retrograde panoramic fashion and the colon mucosa was carefully examined including a retroflexed view of the rectum. Findings and interventions are described below. Procedure Difficulty: easy Findings: Terminal Ileum-normal Cecum:normal Ascending Colon: normal Transverse Colon -normal Descending Colon:normal Sigmoid Colon: moderate diverticulosis Rectum: Retroflexion with medium sized internal hemorrhoids, grade I Anorectum - normal Colon preparation: [place] Bowel Preparation Scale Right colon; 3 Transverse colon: 3 Left colon; 3 (0 = Unprepared colon segment with mucosa not seen due to solid stool that cannot be cleared. 1 = Portion of mucosa of the colon segment seen, but other areas of the colon segment not well seen due to staining, residual stool and/or opaque liquid. 2 = Minor amount of residual staining, small fragments of stool and/or opaque liquid, but mucosa of colon segment seen well. 3 = Entire mucosa of colon segment seen well with no residual staining, small fragments of stool or opaque liquid) Impression and Post Procedure Diagnosis: Endoscopy Findings: hiatal hernia incompetent LES gastritis Colonoscopy Findings: internal hemorrhoids diverticular disease Plan: Await Pathology results Repeat Colonoscopy in 10 years or earlier if clinically indicated High fiber diet leaflet avoid straining at stool, epsom salts and sitz bath, anusol supps or cream GERD precautions, if ongoing sx can refer for fundoplication and hernia repair. Above findings were reviewed with the patient and relevant handouts were provided if indicated.
[2023-02-06 11:49] VITALS: BP 99/61; PULSE 67; RESP 16; TEMP 36.4; O2SAT 97
[2023-02-06 12:04] VITALS: BP 123/78; PULSE 64; RESP 16; O2SAT 100
== END 2023-02-06 13:11 | disposition home or self-care (01) ==
PROVIDERS: PCP Physician Assistant; Visit Provider Internal Medicine Gastroenterology
PROC: (CPT 43239; principal; 2023-02-06 11:50)
DX: Z12.11 Encounter for screening for malignant neoplasm of colon (principal); K57.30 Diverticulosis of large intestine without perforation or abscess without bleeding; K64.0 First degree hemorrhoids; K21.9 Gastro-esophageal reflux disease without esophagitis; K29.50 Unspecified chronic gastritis without bleeding; K22.4 Dyskinesia of esophagus; K44.9 Diaphragmatic hernia without obstruction or gangrene; N40.0 Benign prostatic hyperplasia without lower urinary tract symptoms; E03.9 Hypothyroidism, unspecified; G47.33 Obstructive sleep apnea (adult) (pediatric); Z99.89 Dependence on other enabling machines and devices; Z79.51 Long term (current) use of inhaled steroids; Z79.899 Other long term (current) drug therapy; Z88.8 Allergy status to other drugs, medicaments and biological substances; Z78.9 Other specified health status
CPT/HCPCS: 43239; G0121; 88305; 88342

== ENCOUNTER 2023-03-15 07:32 | Outpatient (AMB) | payer OTHER, MEDICAID, SELFPAY ==
[2023-03-15 08:19] VITALS: BP 112/60; PULSE 64; TEMP 36.4; O2SAT 98; BMI 26.3
--- NOTE | 2023-03-15 08:19 | A.OFFVIS_ITS ---
Intake Vital Signs 03/15/23 08:19 Height 5 ft 3 in Weight 148 lb 9.465 oz BMI 26.3 BP 112/60 Blood Pressure Location Rt brachial Position Sitting Pulse 64 Pulse Source Pulse Oximeter Temp 97.5 F Temp Source Skin Pulse Oximetry (%) 98 Intake Visit Reasons: joint pain Intake Note: Pt seen today for joint pain folow up. States he is doing the same, morning stiffness. Fisheries Officer Required: No Accompanied by: Self / Same As Patient Allergies aspirin Adverse Reaction (Intermediate, Verified 03/15/23 08:21) blood in stools diclofenac Adverse Reaction (Intermediate, Verified 03/15/23 08:21) blood in stools NSAIDS (Non-Steroidal Anti-Inflamma Adverse Reaction (Intermediate, Verified 03/15/23 08:21) Blood in stools Medication List - Last Reconciled 03/15/23 by Jose Oscar MD albuterol sulfate 90 mcg/actuation 1 inh inhalation QID PRN 30 days cetirizine 10 mg PO DAILY 30 days CPAP (CPAP Machine/Device) As directed fluticasone propionate 50 mcg/actuation sprays intranasal levothyroxine 75 mcg PO DAILY omeprazole 20 mg PO DAILY phenylephrine-cocoa butter 0.25-88.44 % (Hemorrhoidal (phenyleph-cocoa)) 1 supp [place] BEDTIME PRN tadalafil 5 mg PO DAILY tamsulosin 0.4 mg PO DAILY HPI HPI Comments History of Present Illness Details Patient returns for follow-up after completion of his blood work and x- rays. He took the prednisone taper as prescribed without much relief. He feels about the same overall. Initial history: This is a 67-year-old male who presents for evaluation of bilateral hand pain the condition started 2-3 years ago. With patient noticing pain and stiffness of his hands worse on the right. 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 2-3 years ago he was told this can be carpal tunnel and received a steroid injection in his hands which did not provide much relief. Currently patient states that he has pain and stiffness of his hands especially when he does manual work at home. The pain and stiffness is usually worse in the middle of the night when he wakes up to go to the bathroom. His fingers hurt when it bumps against anything. He has morning stiffness of his hands and feet lasting 2 hours. He used to take NSAIDs but stopped as he had hemorrhoids. He also applies creams which provided little relief. He is unaware of any family history of autoimmune rheumatic disease. Denies any skin rashes. [facility] Medical History BPH (benign prostatic hyperplasia) Hypothyroid Surgical History History of esophagogastroduodenoscopy (EGD) History of hemorrhoidectomy History of inguinal hernia repair Hx of colonoscopy Family History Mother No problems noted. Father No problems noted. Social History Housing: House Are you a primary career placement specialist to a significant other at home: No Do you presently have visiting nurse or other home services: No Alcohol intake: never Patient Tobacco Use Status: Never used Tobacco e-Cigarette/Vaping Use: Never Used Second Hand Smoke Exposure: No service: No Current occupational status: previously employed and retired Current occupation: used to work in [employer] retired 2019 Cognitive needs: No Hearing needs: No Vision needs: Yes (glasses) Review of Systems Musc Reports arthralgias and Reports stiffness Physical Exam Vital Signs: Last Vital Signs Temp 97.5 F 03/15/23 08:19 Pulse 64 03/15/23 08:19 BP 112/60 03/15/23 08:19 Pulse Ox 98 03/15/23 08:19 BMI result Body Mass Index 26.3 Const General: cooperative, healthy appearing and comfortable Nutritional Appearance: overweight Orientation/consciousness: patient oriented x3 Limitations: no limitations HEENT Head: Yes normocephalic and Yes atraumatic Resp Effort & Inspection: normal respiratory effort and able to speak in complete sentences Skin General skin exam: no rashes or lesions noted Neuro General: patient oriented x3 Extrem Other: No wrist swelling or tenderness or pain with full flexion and extension No PIP swelling or tenderness today Negative MCP squeeze test bilaterally today No tender flexor or extensor tenderness bilaterally Normal range of motion of both elbows and shoulders without pain Normal nailfold capillaroscopy Assessment & Plan Assessment & Plan (1) Bilateral hand pain: Code(s): M79.641 - Pain in right hand; M79.642 - Pain in left hand Plan: This is a 67-year-old male who presents for evaluation of bilateral hand pain. Labs show negative RF/CCP with normal inflammatory markers. X-rays of hands and feet showed no signs of erosive changes, mild degenerative changes. There are no signs of autoimmune rheumatic disease upon my evaluation today. Patient's symptoms are likely mechanical/degenerative in nature. Advised patient to try using Voltaren gel on affected areas. Can also try Tumeric Follow-up in 1 year Coding Level of Care Code Est Pt Level 3 (88426) Diagnoses Bilateral hand pain M79.641; M79.642
== END 2023-03-15 09:22 | disposition home or self-care (01) ==
PROVIDERS: PCP Physician Assistant; Visit Provider Student in an Organized Health Care Education/Training Program
DX: M79.641 Pain in right hand (principal); M79.642 Pain in left hand
CPT/HCPCS: 99213

== ENCOUNTER → 2023-03-15 07:32 | Outpatient (BNVA) | payer OTHER, SELFPAY | PROVIDERS: PCP Physician Assistant; Visit Provider Student in an Organized Health Care Education/Training Program | DX: M79.641 Pain in right hand (principal); M79.642 Pain in left hand | CPT/HCPCS: 99212 ==

== ENCOUNTER 2023-04-25 06:52 | Outpatient (REF) | payer OTHER, MEDICAID, SELFPAY ==
[2023-04-25 08:35] LABS: Cholesterol 208 mg/dL (<200); HDL Cholesterol 53 mg/dL (>40); LDL Cholesterol Calculated 123 mg/dL (<100); Triglycerides 161 mg/dL (<150)
== END 2023-04-25 06:53 | disposition home or self-care (01) ==
LOC: HO.LAB 06:52
PROVIDERS: PCP Physician Assistant; Visit Provider Physician Assistant
DX: E78.5 Hyperlipidemia, unspecified (principal)
CPT/HCPCS: 36415; 80061

== ENCOUNTER 2023-08-22 08:18 | Outpatient (AMB) | payer OTHER, SELFPAY ==
[2023-08-22 08:21] VITALS: BP 122/74; PULSE 68; O2SAT 97; BMI 26.7
--- NOTE | 2023-08-22 08:21 | MHC.PC.OV ---
Vital Signs 08/22/23 08:21 Height 5 ft 3 in Weight 151 lb BMI 26.7 BP 122/74 Blood Pressure Location Lt brachial Position Sitting Pulse 68 Pulse Source Pulse Oximeter Pulse Oximetry (%) 97 Oxygen Delivery Method Room Air Intake Visit Reasons: pain in right hand Allergies aspirin Adverse Reaction (Intermediate, Verified 08/22/23 09:03) blood in stools diclofenac Adverse Reaction (Intermediate, Verified 08/22/23 09:03) blood in stools NSAIDS (Non-Steroidal Anti-Inflamma Adverse Reaction (Intermediate, Verified 08/22/23 09:03) Blood in stools Medication List - Last Reconciled 08/22/23 by Anselmo Thomas MD albuterol sulfate 90 mcg/actuation 1 inh inhalation QID PRN 30 days cetirizine 10 mg PO DAILY 30 days CPAP (CPAP Machine/Device) As directed fluticasone propionate 50 mcg/actuation sprays intranasal levothyroxine 75 mcg PO DAILY omeprazole 20 mg PO DAILY phenylephrine-cocoa butter 0.25-88.44 % (Hemorrhoidal (phenyleph-cocoa)) 1 supp [place] BEDTIME PRN tadalafil 5 mg PO DAILY tamsulosin 0.4 mg PO DAILY Tobacco use date assessed: 08/22/23 Fall risk assessment: No Falls in past year Last assessed Fall Risk: 08/22/23 Dental Screening Dental Screen Date: 08/22/23 Did you have a dental visit in the last 12 months?: No Did you have a dental problem in the last 6 months where you did not have access to dental care?: No Was dental information given to patient?: Patient has dentist HPI pain in right hand HPI Details 68-year-old male presents to the office for a follow-up visit. I am covering for his primary care provider. Patient is complaining of increased stiffness in both hands and new elbow pain in the past few months. 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 Also complaining of bumps being formed around the joints. He has trouble picking up kitchen utensils and on more than 1 occasion things have dropped from his hand. He was seen by a c d still operator a few months ago but never followed up. Patient was given prednisone at that office visit but he never took the medication for fear of bleeding. [facility] Medical History BPH (benign prostatic hyperplasia) Hypothyroid Surgical History History of esophagogastroduodenoscopy (EGD) History of hemorrhoidectomy History of inguinal hernia repair Hx of colonoscopy Family History Mother No problems noted. Father No problems noted. Social History Housing: House Are you a primary before and after school daycare worker to a significant other at home: No Do you presently have visiting nurse or other home services: No Alcohol intake: never Patient Tobacco Use Status: Never used Tobacco e-Cigarette/Vaping Use: Never Used Second Hand Smoke Exposure: No service: No Current occupational status: previously employed and retired Current occupation: used to work in [employer] retired 2020 Cognitive needs: No Hearing needs: No Vision needs: Yes (glasses) Questionnaire PHQ-9 Over the last 2 weeks, how often have you been bothered by any of the following problems? 1. Little interest or pleasure in doing things: several days 2. Feeling down, depressed, or hopeless: several days 3. Trouble falling or staying asleep, or sleeping too much: not at all 4. Feeling tired or having little energy: not at all 5. Poor appetite or overeating: not at all 6. Feeling bad about yourself - or that you are a failure or have let yourself or your family down: not at all 7. Trouble concentrating on things, such as reading the newspaper or watching television: not at all 8. Moving or speaking so slowly that other people could have noticed. Or the opposite - being so fidgety or restless that you have been moving around a lot more than usual: not at all 9. Thoughts that you would be better off or of hurting yourself in some way: not at all Total score: 2 Depression Screening Interpretation: Negative Depression Screening Done: Yes Source: Developed by Drs. Tyson Hagan, Zaida Pierre, Elroy Tan and colleagues, with an educational binta from [employer]. Thrive Questionnaire Date Thrive assessed: 08/22/23 I am a: Patient What is your living situation today?: I have a steady place to live Within the past 12 months, did the food you bought not last and you didn't have the money to get more?: Never true Within the past 12 months, did you worry whether your food would run out before you got money to buy more?: Never true Do you have trouble paying for medicines?: No Do you have trouble getting transportation to medical appointments?: No Do you have trouble paying your heating and electricity bill?: No Do you have trouble taking care of your child, family member or friend?: No Do you have trouble with day-to-day activities such as bathing, preparing meals, shopping, managing finances, etc.?: No Are you currently unemployed and looking for a job?: No Are you interested in more education?: No Currently or been in a relationship where the following occur: no concerns reported AUDIT C Alcohol Use Questionnaire (AUDIT-C) 1. How often do you have a drink containing alcohol?: Never 3. How often do you have six or more drinks on one occasion?: Never Total Score: 0 AYESHA-7 AMB Questionnaire AYESHA-7 Date AYESHA - 7 assessed: 08/22/23 Feeling nervous, anxious, or on edge: 0 = Not at all Not being able to stop or control worryin = Not at all Worrying too much about different things: 0 = Not at all Trouble relaxin = Not at all Being so restless that it is hard to sit still: 0 = Not at all Becoming easily annoyed or irritable: 0 = Not at all Feeling afraid as if something awful might happen: 0 = Not at all Total AYESHA-7 score (0-4 normal; 5-9 mild; 10-14 moderate; 15-21 severe): 0 Source: Developed by Drs. Tyson Hagan, Zaida Pierre, Elroy Tan and colleagues, with an educational binta from [employer]. Physical exam (Primary Care) Vital Signs: Last Vital Signs Pulse 68 08/22/23 08:21 BP 122/74 08/22/23 08:21 Pulse Ox 97 08/22/23 08:21 Oxygen Delivery Method Room Air 08/22/23 08:21 BMI result Body Mass Index 26.7 Tobacco/Smoking Status: Tobacco use Status Tobacco use date assessed 08/22/23 08/22/23 08:26 Patient Tobacco Use Status Never used Tobacco 08/22/23 08:26 e-Cigarette/Vaping Use Never Used 08/22/23 08:26 PHQ-9: PHQ-9 Score PHQ-9: Total score 2 08/22/23 08:26 Depression Screening Interpretation: Negative Thrive Assessment: Date of Thrive Assessment Date Thrive assessed 08/22/23 08/22/23 08:26 Currently or been in a relationship where the following occur: no concerns reported Const General: cooperative and healthy appearing Nutritional Appearance: well nourished Orientation/consciousness: patient oriented x3 Limitations: no limitations HENMT Head: Yes normal to inspection Eyes General: appearance normal, both eyes and all related structures Neck Neck: Yes normal visual inspection Chest Chest palpation & inspection: normal palpation of entire chest wall Resp Effort & Inspection: normal respiratory effort Neuro General: patient oriented x3 Extrem Other: Right and left hands: Symmetrical swelling in the DIP joints of both hands. Tenderness in the synovium of the right elbow. Full range of motion with minimal discomfort. Assessment and Plan Assessment & Plan (1) Osteoarthritis of hands, bilateral: Code(s): M19.041 - Primary osteoarthritis, right hand; M19.042 - Primary osteoarthritis, left hand Plan: 20 minutes spent in reviewing the chart. I informed the patient that he did not get the blood work ordered by the c d still operator and encouraged him to get the same today. Most likely his symptoms are due to osteoarthritis. Long-term use of nonsteroidals need to be planned. A follow-up appointment with the c d still operator will be arranged. Patient verbally understanding. Coding Level of Care Code Est Pt Level 4 (37163) Diagnoses Osteoarthritis of hands, bilateral M19.041; M19.042 Additional Codes PHQ-9 - 19098 - PHQ-9 Billing: ([id number])
== END 2023-08-22 09:05 | disposition home or self-care (01) ==
PROVIDERS: PCP Physician Assistant; Visit Provider Internal Medicine
DX: M19.041 Primary osteoarthritis, right hand (principal); M19.042 Primary osteoarthritis, left hand
CPT/HCPCS: 99214

== ENCOUNTER 2023-08-22 09:12 | Outpatient (REF) | payer OTHER, SELFPAY | END 2023-08-22 09:13 | disposition home or self-care (01) | LOC: HO.LAB 09:12 | PROVIDERS: PCP Physician Assistant; Visit Provider Student in an Organized Health Care Education/Training Program | DX: E78.2 Mixed hyperlipidemia (principal); E03.8 Other specified hypothyroidism; E06.3 Autoimmune thyroiditis | CPT/HCPCS: 36415; 80061; 84443 ==

== ENCOUNTER 2023-09-02 07:14 | Outpatient (REF) | payer OTHER, SELFPAY ==
[2023-09-02 07:50] LABS: Appearance Urine Clear; Color Urine Yellow; Glucose Urine UA Negative (Negative); Leukocyte Esterase Urine Trace (Negative); Nitrite Urine Negative (Negative); PH 5.5 (5.0-9.0); UMIC TRIGGER UA YES; Urine Blood Negative (Negative); Urine Ketones Negative (Negative); Urine Protein Negative (Neg-Trace)
[2023-09-02 07:55] LABS: Bacteria Urine None Seen (None Seen); Hyaline Casts Urine 0-2 /LPF (0-2); RBC Urine 0-2 /HPF (0-2); Squamous Epithelial Cell Urine 0-2 /HPF (0-2); WBC Urine 0-5 /HPF (0-5)
[2023-09-02 08:23] LABS: Creatinine Urine 116.01 mg/dL; Total Protein Urine Random < 7 mg/dL (<12)
[2023-09-02 08:24] LABS: HBc Num1 0.03 S/CO (0.00-0.79); Hepatitis A Antibody IgM 0.28 Index (0-0.79); Hepatitis B Core Antibody Nonreactive (Nonreactive); Hepatitis B Surface Antigen Negative (Negative); ~HepC Num1 0.08 S/CO (0.00-0.79); ~Hepatitis A Antibody IgM Nonreactive (Nonreactive); ~Hepatitis B Surface Antibody NONREACTIVE (Nonreactive); ~Hepatitis C Antibody Nonreactive (Nonreactive)
[2023-09-03 19:17] LABS: Complement C3 119 mg/dL (82-185)
[2023-09-04 10:49] LABS: Prot Elec - Albumin 4.3 g/dL (3.8-4.8); Prot Elec - Alpha1 0.2 g/dL (0.2-0.3); Prot Elec - Alpha2 0.6 g/dL (0.5-0.9); Prot Elec - Beta 1 0.4 g/dL (0.4-0.6); Prot Elec - Beta 2 0.4 g/dL (0.2-0.5); Prot Elec - Gamma 0.8 g/dL (0.8-1.7); Prot Elec - Total Protein 6.7 g/dL (6.1-8.1)
[2023-09-04 11:13] LABS: Anti Nuclear Antibody Screen NEGATIVE (NEGATIVE)
[2023-09-04 19:13] LABS: Anti DNA DS Antibody <1 IU/mL; Antibody to SS-A Antigen <1.0 NEG AI (<1.0 NEG); Antibody to SS-B Antigen <1.0 NEG AI (<1.0 NEG); SM/Ribonucleoprotein Ab <1.0 NEG AI (<1.0 NEG); Smith Protein <1.0 NEG AI (<1.0 NEG)
[2023-09-05 07:38] LABS: TS Negative Control Passed; TS Panel A 0; TS Panel B 1; TS Positive Control Passed; TSpotTB Negative (Negative)
[2023-09-05 14:48] LABS: IgA 303 mg/dL (70-320); IgG 911 mg/dL (600-1540); IgM 72 mg/dL (50-300)
== END 2023-09-02 07:15 | disposition home or self-care (01) ==
LOC: HO.LAB 07:14
PROVIDERS: PCP Physician Assistant; Visit Provider Student in an Organized Health Care Education/Training Program
DX: M32.9 Systemic lupus erythematosus, unspecified (principal); M06.9 Rheumatoid arthritis, unspecified; Z11.7 Encounter for testing for latent tuberculosis infection; Z11.59 Encounter for screening for other viral diseases
CPT/HCPCS: 36415; 81001; 82570; 82784; 84156; 84165; 86038; 86160; 86225; 86235; 86334; 86481; 86704; 86706; 86709; 86803; 87340

== ENCOUNTER 2023-09-12 12:51 | Outpatient (AMB) | payer OTHER, SELFPAY ==
[2023-09-12 12:58] VITALS: BP 126/66; PULSE 66; TEMP 36.6; O2SAT 98; BMI 26.9
--- NOTE | 2023-09-12 12:58 | MHC.OFFVIS ---
Intake Vital Signs 09/12/23 12:58 Height 5 ft 3 in Weight 152 lb 1.903 oz BMI 26.9 BP 126/66 Blood Pressure Location Rt brachial Position Sitting Pulse 66 Pulse Source Pulse Oximeter Temp 97.9 F Temp Source Skin Pulse Oximetry (%) 98 Oxygen Delivery Method Room Air Intake Visit Reasons: labs follow up Intake Note: Patient last seen 03/15/23 presents today for follow up and test results. 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: No Accompanied by: Self / Same As Patient Allergies aspirin Adverse Reaction (Intermediate, Verified 09/12/23 12:59) blood in stools diclofenac Adverse Reaction (Intermediate, Verified 09/12/23 12:59) blood in stools NSAIDS (Non-Steroidal Anti-Inflamma Adverse Reaction (Intermediate, Verified 09/12/23 12:59) Blood in stools Medication List - Last Reconciled 09/12/23 by Jose Oscar MD albuterol sulfate 90 mcg/actuation 1 inh inhalation QID PRN 30 days cetirizine 10 mg PO DAILY 30 days CPAP (CPAP Machine/Device) As directed fluticasone propionate 50 mcg/actuation sprays intranasal ketorolac 0.5% 1 drp ophthalmic (eye) QID levothyroxine 75 mcg PO DAILY omeprazole 20 mg PO DAILY phenylephrine-cocoa butter 0.25-88.44 % (Hemorrhoidal (phenyleph-cocoa)) 1 supp [place] BEDTIME PRN tamsulosin 0.4 mg PO DAILY HPI HPI Comments History of Present Illness Details 68-year-old male with osteoarthritis returns for follow-up. He completed all the blood work. Previously he completed a prednisone taper without relief. He states that his right thumb interphalangeal joint has been more swollen and painful recently has been having pain at the base of his left thumb as well as right elbow pain. He denies any recent excessive trauma or overuse of his upper extremities. Takes Tylenol once daily without much relief. Initial history: This is a 67-year-old male who presents for evaluation of bilateral hand pain the condition started 2-3 years ago. With patient noticing pain and stiffness of his hands worse on the right. 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 2-3 years ago he was told this can be carpal tunnel and received a steroid injection in his hands which did not provide much relief. Currently patient states that he has pain and stiffness of his hands especially when he does manual work at home. The pain and stiffness is usually worse in the middle of the night when he wakes up to go to the bathroom. His fingers hurt when it bumps against anything. He has morning stiffness of his hands and feet lasting 2 hours. He used to take NSAIDs but stopped as he had hemorrhoids. He also applies creams which provided little relief. He is unaware of any family history of autoimmune rheumatic disease. Denies any skin rashes. [facility] Medical History (Updated 09/12/23 @ 13:41 by Jose Oscar MD) Polyarthralgia BPH (benign prostatic hyperplasia) Hypothyroid Surgical History History of esophagogastroduodenoscopy (EGD) Hx of colonoscopy History of inguinal hernia repair History of hemorrhoidectomy Family History Mother No problems noted. Father No problems noted. 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 Cognitive needs: No Hearing needs: No Vision needs: Yes (glasses) Review of Systems [facility] Reports arthralgias and Reports stiffness Physical Exam Vital Signs: Last Vital Signs Temp 97.9 F 09/12/23 12:58 Pulse 66 09/12/23 12:58 BP 126/66 09/12/23 12:58 Pulse Ox 98 09/12/23 12:58 Oxygen Delivery Method Room Air 09/12/23 12:58 BMI result Body Mass Index 26.9 Const General: cooperative, healthy appearing and comfortable Nutritional Appearance: overweight Orientation/consciousness: patient oriented x3 Limitations: no limitations HEENT Head: Yes normocephalic and Yes atraumatic Resp Effort & Inspection: normal respiratory effort and able to speak in complete sentences Skin General skin exam: no rashes or lesions noted Neuro General: patient oriented x3 Extrem Other: No wrist swelling or tenderness or pain with full flexion and extension No PIP swelling or tenderness today Multiple prominent Heberden's nodes bilaterally Mild swelling of the right thumb interphalangeal joint, tender to palpation Left 1st CMC joint tenderness Tenderness at the common extensor origin at the right lateral epicondyle with negative resisted wrist extension test Normal range of motion of shoulders without pain Normal nailfold capillaroscopy Results Reviewed Results Reviewed: CLINICAL INFORMATION: Rheumatoid arthritis. COMPARISON: None TECHNIQUE: AP, lateral and oblique views of each hand/wrist. AP, lateral and oblique views of each foot. FINDINGS: RIGHT Hand/Wrist: Alignment is anatomic. Mild diffuse interphalangeal joint space narrowing. Joint space narrowing of the first MTP joint. No bony erosions. No displaced fracture. Mild generalized prominence of the soft tissues. Foot: Alignment is anatomic. Mild diffuse interphalangeal joint space narrowing. No bony erosions. No displaced fracture. LEFT Hand/Wrist: Alignment is anatomic. Mild diffuse interphalangeal joint space narrowing. Joint space narrowing of the first MTP joint. No bony erosions. No displaced fracture. Mild generalized prominence of the soft tissues. Foot: Alignment is anatomic. Mild diffuse interphalangeal joint space narrowing. No bony erosions. No displaced fracture. XR/XR hand wrist RT IMPRESSION: As above. Assessment & Plan Assessment & Plan (1) Osteoarthritis of both hands: Code(s): M19.041 - Primary osteoarthritis, right hand; M19.042 - Primary osteoarthritis, left hand Qualifiers: Osteoarthritis type: primary Qualified Code(s): M19.041 - Primary osteoarthritis, right hand; M19.042 - Primary osteoarthritis, left hand Plan: This is a 68-year-old male who presents for evaluation of bilateral hand pain.? Labs show negative serologies and normal inflammatory markers.? X-rays of hands and feet showed no signs of erosive changes, mild degenerative changes.? There are no signs of autoimmune rheumatic disease upon my evaluation today.? Symptoms did not respond to prednisone taper. Clinical picture consistent with bilateral hand osteoarthritis. Discussed the nature of the condition and different management strategies. Advised patient to take Tylenol up to 2000 mg daily. Try using Voltaren gel on affected painful areas. I did offer a referral to hand surgery to consider a steroid injection in the right thumb interphalangeal joint, the one that is particularly symptomatic today. Patient was not interested We discussed occupational therapy and steroid injection for the left 1st CMC joint. Follow-up as needed (2) Right tennis elbow: Code(s): M77.11 - Lateral epicondylitis, right elbow Plan: Discussed different treatment options. I offered referral to occupational therapy. Patient was not interested. Follow-up with PCP Plan I spent 22 minutes reviewing patient's chart, evaluating patient, counseling patient and documenting in the chart Coding Level of Care Code Est Pt Level 4 (00141) Diagnoses Primary osteoarthritis of both hands M19.041; M19.042 Osteoarthritis type: primary Right tennis elbow M77.11
== END 2023-09-12 13:52 | disposition home or self-care (01) ==
PROVIDERS: PCP Physician Assistant; Visit Provider Student in an Organized Health Care Education/Training Program
DX: M19.041 Primary osteoarthritis, right hand (principal); M19.042 Primary osteoarthritis, left hand; M77.11 Lateral epicondylitis, right elbow
CPT/HCPCS: 99214

== ENCOUNTER → 2023-09-12 12:51 | Outpatient (BNVA) | payer OTHER, SELFPAY | PROVIDERS: PCP Physician Assistant; Visit Provider Student in an Organized Health Care Education/Training Program | DX: M19.041 Primary osteoarthritis, right hand (principal); M19.042 Primary osteoarthritis, left hand; M77.11 Lateral epicondylitis, right elbow | CPT/HCPCS: 99212 ==

== ENCOUNTER 2023-11-21 08:56 | Outpatient (AMB) | payer OTHER, SELFPAY ==
--- NOTE | 2023-11-21 08:58 | MHC.OFFVIS ---
Intake Vital Signs 11/21/23 09:10 Height 5 ft 3 in Weight 149 lb 8 oz BMI 26.5 BP 122/70 Blood Pressure Location Lt brachial Position Sitting Pulse 73 Pulse Source Pulse Oximeter Pulse Oximetry (%) 93 Oxygen Delivery Method Room Air Intake Visit Reasons: 1yr follow up Sleep Apnea Intake Note: Patient presents for 1 year F/U. The pressure of the CPAP machine is to strong and pt. would like for the air pressure to go a level lower. Needs new supplies. Allergies aspirin Adverse Reaction (Intermediate, Verified 11/21/23 09:08) blood in stools diclofenac Adverse Reaction (Intermediate, Verified 11/21/23 09:08) blood in stools NSAIDS (Non-Steroidal Anti-Inflamma Adverse Reaction (Intermediate, Verified 11/21/23 09:08) Blood in stools HPI HPI Comments History of Present Illness Details 68 y/o male patient presents for follow up of BRAXTON on CPAP. Pt reports that he has tried bigger CPAP mask and he feels better, but air leaks too much. He feels more refreshed in the morning and daytime tiredness has improved. The CPAP compliance and therapy response (08/20/23-11/17/23) reviewed with the patient. He is on APAP [id number]. The usage days 100%, and average usage hours 9 hours. The max pressure is 9.7 and the residual AHI was 2.4/hr. [facility] Medical History (Updated 09/12/23 @ 13:41 by Jose Oscar MD) Polyarthralgia BPH (benign prostatic hyperplasia) Hypothyroid Surgical History History of esophagogastroduodenoscopy (EGD) Hx of colonoscopy History of inguinal hernia repair History of hemorrhoidectomy Family History Mother No problems noted. Father No problems noted. 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 Cognitive needs: No Hearing needs: No Vision needs: Yes (glasses) Review of Systems Const All systems reviewed & are unremarkable except as noted in HPI and below ENT Reports Normal hearing present Neuro Reports Normal hearing present Physical Exam Vital Signs: Last Vital Signs Pulse 73 11/21/23 09:10 BP 122/70 11/21/23 09:10 Pulse Ox 93 11/21/23 09:10 Oxygen Delivery Method Room Air 11/21/23 09:10 BMI result Body Mass Index 26.5 Const General: cooperative Nutritional Appearance: average body habitus Orientation/consciousness: patient oriented x3 Resp Effort & Inspection: normal respiratory effort and able to speak in complete sentences Neuro General: patient oriented x3, gait normal and moves all extremities Cranial nerves: Yes Normal facial strength present, Yes Symmetric palate elevation present, Yes Normal hearing present, Yes Ability to bilaterally rotate head present and Yes Ability to bilaterally elevate shoulders present Cognition (Neuro): normal cognition Psych Appearance: grossly normal Mental Status: mental status grossly normal Speech and movement: Normal speech and movement present Assessment & Plan Assessment & Plan (1) BRAXTON (obstructive sleep apnea): Comment: Mild to moderate degree of sleep apnea. The total AHI was 16 with oxygen kate was 83% Code(s): G47.33 - Obstructive sleep apnea (adult) (pediatric) Plan Advised patient to continue to use APAP [id number] as patient experiences good clinical effects. Stressed compliance, use CPAP nightly and more than 4 hours. Clean mask and tubing regularly. New mask fitting prescription given to patient with [facility] walk in information. Coding Level of Care Code Est Pt Level 3 (76215) Diagnoses BRAXTON (obstructive sleep apnea) G47.33
[2023-11-21 09:10] VITALS: BP 122/70; PULSE 73; O2SAT 93; BMI 26.5
== END 2023-11-21 09:35 | disposition home or self-care (01) ==
PROVIDERS: Visit Provider Nurse Practitioner Family
DX: G47.33 Obstructive sleep apnea (adult) (pediatric) (principal)
CPT/HCPCS: 99213

== ENCOUNTER → 2023-11-21 08:56 | Outpatient (BNVA) | payer OTHER, SELFPAY | PROVIDERS: Visit Provider Nurse Practitioner Family | DX: G47.33 Obstructive sleep apnea (adult) (pediatric) (principal); Z99.89 Dependence on other enabling machines and devices | CPT/HCPCS: 99212 ==

== ENCOUNTER 2023-12-12 14:06 | Outpatient (AMB) | payer OTHER, SELFPAY ==
--- NOTE | 2023-12-12 14:06 | A.OFFPC_ITS ---
Vital Signs 12/12/23 14:07 Height 5 ft 3 in Weight 149 lb 6 oz BMI 26.5 BP 120/60 Blood Pressure Location Lt brachial Position Sitting Pulse 70 Pulse Source Pulse Oximeter Pulse Oximetry (%) 98 Oxygen Delivery Method Room Air Intake Visit Reasons: Right Shoulder Pain Intake Note: The patient is presenting with right eye pain and was examined by Dr. Garza, who diagnosed possible peripheral neuropathy. The patient has attempted ketorolac 2- 3 times per day for 2-4 weeks, but states that it does not provide relief. Additionally, the patient is requesting a referral to podiatry for plantar fascitis. 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 He has been suffering with right eye pain worse when trying to focus on reading or watching television. Has seen his eye doctor and was told he does not have a particular eye disease. He does not report any particular vision disruption. He was told to follow-up with his PCP about perhaps trying medication for a trigeminal neuralgia. He also reports he continues to left plantar pain over the last several years. He has done a lot of conservative management since last therapy and icing. He is received cortisone injections in the past though found them not to be effective. He would like to see another health researcher for a 2nd opinion [facility] Medical History Polyarthralgia BPH (benign prostatic hyperplasia) Hypothyroid Surgical History History of esophagogastroduodenoscopy (EGD) Hx of colonoscopy History of inguinal hernia repair History of hemorrhoidectomy Family History Mother No problems noted. Father No problems noted. Social History Housing: House Are you a primary health care marketing manager to a significant other at home: No Do you presently have visiting nurse or other home services: No Alcohol intake: never Patient Tobacco Use Status: Never used Tobacco e-Cigarette/Vaping Use: Never Used Second Hand Smoke Exposure: No service: No Current occupational status: previously employed and retired Current occupation: used to work in [employer] retired 2019 Cognitive needs: No Hearing needs: No Vision needs: Yes (glasses) Questionnaire Thrive Questionnaire Date Thrive assessed: 08/22/23 AYESHA-7 AMB Questionnaire AYESHA-7 Date AYESHA - 7 assessed: 08/22/23 Source: Developed by Drs. Tyson Hagan, Zaida Pierre, Elroy Tan and colleagues, with an educational binta from [employer]. Review of Systems Const Denies headache(s) Eyes Denies loss of vision ENT Denies vertigo, Denies dizziness, Denies headache(s) and Denies sore throat Card Denies chest pain, Denies leg edema and Denies lightheadedness Resp Denies cough, Denies hemoptysis and Denies wheezing GI Denies abdominal pain, Denies melena, Denies constipation, Denies diarrhea and Denies vomiting Denies dysuria, Denies urinary frequency and Denies urinary urgency Musc Denies arthralgias, Denies joint swelling, Denies numbness and Denies tingling Neuro Denies Abnormal speech present, Denies behavioral changes, Denies vertigo, Denies dizziness, Denies headache(s), Denies loss of vision, Denies memory loss, Denies numbness and Denies tingling Psych Denies anxiety, Denies behavioral changes, Denies depression, Denies memory loss and Denies panic attacks Seven/Lymph Denies easy bleeding and Denies easy bruising Aller/Immun Denies wheezing Physical exam (Primary Care) Vital Signs: Last Vital Signs Pulse 70 12/12/23 14:07 BP 120/60 12/12/23 14:07 Pulse Ox 98 12/12/23 14:07 Oxygen Delivery Method Room Air 12/12/23 14:07 BMI result Body Mass Index 26.5 Tobacco/Smoking Status: Tobacco use Status Tobacco use date assessed 08/22/23 12/12/23 14:07 Patient Tobacco Use Status Never used Tobacco 12/12/23 14:07 e-Cigarette/Vaping Use Never Used 12/12/23 14:07 Thrive Assessment: Date of Thrive Assessment Date Thrive assessed 08/22/23 12/12/23 14:07 Const General: healthy appearing, no acute distress, alert and awake Nutritional Appearance: well nourished Orientation/consciousness: oriented to person, oriented to place and oriented to time HENMT Ears: TM's normal bilaterally General nose exam: Normal nasal mucous membranes and turbinates present Eyes Conjunctivae: conjunctivae normal Sclerae: sclerae normal Pupils: Equal, round and reactive pupils present Neck Neck: Yes no lymphadenopathy and Yes no JVD Thyroid: Thyroid normal Carotids: no bruits Resp Effort & Inspection: normal respiratory effort and not tachypneic Auscultation: no crackles, no rales, no rhonchi and no wheezes Cardio Rate: regular rate Rhythm: regular rhythm Heart sounds: no murmurs and normal S1 and S2 GI Palpation (GI): Soft to palpation, nontender, no hepatomegaly and no splenomegaly Auscultation: normal bowel sounds Skin General skin exam: no rashes or lesions noted and dry skin Neuro General: oriented to person, oriented to place and oriented to time Cranial nerves: Yes Equal, round and reactive pupils present Speech: No Abnormal speech present Gait exam (Neuro): Normal gait present Motor exam (neuro): no tremor noted Extrem Right upper extremity: full ROM Left upper extremity: full ROM Right lower extremity: full ROM; no edema Left lower extremity: full ROM; no edema Psych Mental Status: mental status grossly normal Speech and movement: Normal speech and movement present Affect: normal affect Attitude: cooperative Thought process: Normal thought process present Assessment and Plan Assessment & Plan (1) Trigeminal neuralgia: Code(s): G50.0 - Trigeminal neuralgia Plan: Diagnosis still unclear though continues to have right eye pain when particularly straining and focusing on an image or reading. He has seen night doctor and was told he does not have a particular eye disease. There are concerns here for any typical trigeminal neuralgia. Will try gabapentin (2) Plantar fasciitis, left: Code(s): M72.2 - Plantar fascial fibromatosis Plan: Continues to left plantar foot pain to which he has tried a lot of conservative management for though still continues to have pain. He would like to see another health researcher for evaluation and possible surgical treatment. Orders: Referrals Podiatry Referral M72.2 - Plantar fascial fibromatosis Neurology Referral G50.0 - Trigeminal neuralgia Medications: New gabapentin 100 mg PO BID 60 caps 0RF 30 days G50.0 - Trigeminal neuralgia Coding Level of Care Code Est Pt Level 4 (68785) Diagnoses Trigeminal neuralgia G50.0 Plantar fasciitis, left M72.2
[2023-12-12 14:07] VITALS: BP 120/60; PULSE 70; O2SAT 98; BMI 26.5
== END 2023-12-12 14:58 | disposition home or self-care (01) ==
PROVIDERS: PCP Physician Assistant; Visit Provider Physician Assistant
DX: G50.0 Trigeminal neuralgia (principal); M72.2 Plantar fascial fibromatosis
CPT/HCPCS: 99214

== ENCOUNTER 2024-03-05 12:23 | Outpatient (AMB) | payer OTHER, SELFPAY ==
--- NOTE | 2024-03-05 12:36 | MHC.OFFVIS ---
Vital Signs 03/05/24 12:38 Height 5 ft 3 in Weight 152 lb 2 oz BMI 26.9 BP 122/70 Blood Pressure Location Rt brachial Position Sitting Respiration 16 Pulse 70 Pulse Source Pulse Oximeter Pulse Oximetry (%) 98 Oxygen Delivery Method Room Air Intake Visit Reasons: Established pt New Dx: Trigeminal neuralgia? - Con Intake Note: Pt presents to the office or evaluation for trigeminal neuralgia. Patient Relations Representative Required: No Allergies aspirin Adverse Reaction (Intermediate, Verified 03/05/24 12:38) blood in stools diclofenac Adverse Reaction (Intermediate, Verified 03/05/24 12:38) blood in stools NSAIDS (Non-Steroidal Anti-Inflamma Adverse Reaction (Intermediate, Verified 03/05/24 12:38) Blood in stools Medication List - Last Reconciled 03/05/24 by Siobhan Dash MD alfuzosin ER 10 mg PO DAILY carbamazepine ER 100 mg PO BID CPAP (CPAP Machine/Device) As directed fluticasone propionate 50 mcg/actuation sprays intranasal levothyroxine 75 mcg PO DAILY HPI Comments Details: 68 y/o male patient presents for follow up of BRAXTON on CPAP and is referred here for Right eye pain for 10-20 years. He has seen multiple ophthalmologists . He was seen by Dr. Garza and suggested that it could be trigeminal neuralgia.He says the pain is constant and more when he strains his eyes . He says it is a dull constant pain. Pt reports that he has tried bigger CPAP mask and he feels better, but air leaks too much. He feels more refreshed in the morning and daytime tiredness has improved. The CPAP compliance and therapy response (12/10-03/11) reviewed with the patient.The heated humidifier bothers him He is on APAP [id number]. The usage days 100%, and average usage hours 8 hours. The max pressure is 9.7 and the residual AHI was 2.4/hr. [facility] Medical History (Updated 03/05/24 @ 12:57 by Siobhan Dash MD) Ocular pain, right eye Ocular pain, right eye Polyarthralgia BPH (benign prostatic hyperplasia) Hypothyroid Surgical History History of esophagogastroduodenoscopy (EGD) Hx of colonoscopy History of inguinal hernia repair History of hemorrhoidectomy Family History Mother No problems noted. Father No problems noted. Social History Housing: House Are you a primary daycare provider to a significant other at home: No Do you presently have visiting nurse or other home services: No Alcohol intake: never Patient Tobacco Use Status: Never used Tobacco e-Cigarette/Vaping Use: Never Used Second Hand Smoke Exposure: No service: No Current occupational status: previously employed and retired Current occupation: used to work in [employer] retired 2019 Cognitive needs: No Hearing needs: No Vision needs: Yes (glasses) Review of Systems ENT Reports Normal hearing present Neuro Reports Normal hearing present Physical Exam Vital Signs: Last Vital Signs Pulse 70 03/05/24 12:38 Resp 16 03/05/24 12:38 BP 122/70 03/05/24 12:38 Pulse Ox 98 03/05/24 12:38 Oxygen Delivery Method Room Air 03/05/24 12:38 BMI result Body Mass Index 26.9 Const General: cooperative Nutritional Appearance: average body habitus Orientation/consciousness: patient oriented x3 Resp Effort & Inspection: normal respiratory effort and able to speak in complete sentences Neuro General: patient oriented x3, gait normal and moves all extremities Cranial nerves: Yes Normal facial strength present, Yes Symmetric palate elevation present, Yes Normal hearing present, Yes Ability to bilaterally rotate head present and Yes Ability to bilaterally elevate shoulders present Cognition (Neuro): normal cognition Psych Appearance: grossly normal Mental Status: mental status grossly normal Speech and movement: Normal speech and movement present Assessment & Plan Assessment & Plan (1) BRAXTON (obstructive sleep apnea): Comment: Mild to moderate degree of sleep apnea. The total AHI was 16 with oxygen kate was 83% Code(s): G47.33 - Obstructive sleep apnea (adult) (pediatric) Category: Medical (2) Ocular pain, right eye: Comment: ? neuralgia Code(s): H57.11 - Ocular pain, right eye Category: Medical Plan Advised patient to continue to use APAP [id number] as patient experiences good clinical effects. Stressed compliance, use CPAP nightly and more than 4 hours. Clean mask and tubing regularly. I will trial him on tegretol XR 100mg bid His ESR was 2 in 2022. Suggested to switch to a regular humidifier from a heated humidifier Medications: New carbamazepine ER 100 mg PO BID 60 caps 2RF Coding Level of Care Code Est Pt Level 5 (89130) Complex EM visit Add On G2211 Diagnoses BRAXTON (obstructive sleep apnea) G47.33 Ocular pain, right eye H57.11
[2024-03-05 12:38] VITALS: BP 122/70; PULSE 70; RESP 16; O2SAT 98; BMI 26.9
== END 2024-03-05 13:10 | disposition home or self-care (01) ==
PROVIDERS: PCP Physician Assistant; Visit Provider Psychiatry & Neurology Neurology
DX: G47.33 Obstructive sleep apnea (adult) (pediatric) (principal); H57.11 Ocular pain, right eye
CPT/HCPCS: 99214; G2211

== ENCOUNTER → 2024-03-05 12:23 | Outpatient (BNVA) | payer OTHER, SELFPAY | PROVIDERS: PCP Physician Assistant; Visit Provider Psychiatry & Neurology Neurology | DX: G47.33 Obstructive sleep apnea (adult) (pediatric) (principal); H57.11 Ocular pain, right eye; Z99.89 Dependence on other enabling machines and devices | CPT/HCPCS: 99212 ==

== ENCOUNTER 2024-04-13 08:32 | Outpatient (AMB) | payer OTHER, SELFPAY ==
[2024-04-13 08:35] VITALS: BP 120/78; BMI 27.1
--- NOTE | 2024-04-13 08:35 | A.OFFPC_ITS ---
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: No Accompanied by: Self / Same As Patient Allergies aspirin Adverse Reaction (Intermediate, Verified 04/13/24 08:53) blood in stools diclofenac Adverse Reaction (Intermediate, Verified 04/13/24 08:53) blood in stools NSAIDS (Non-Steroidal Anti-Inflamma Adverse Reaction (Intermediate, Verified 04/13/24 08:53) Blood in stools Medication List - Last Reconciled 04/13/24 by Ramon Ugalde PA-C alfuzosin ER 10 mg PO DAILY carbamazepine ER 100 mg PO BID cetirizine (Allergy Relief (cetirizine)) 10 mg PO DAILY PRN CPAP (CPAP Machine/Device) As directed fluticasone propionate 50 mcg/actuation sprays intranasal levothyroxine 75 mcg PO DAILY Tobacco use date assessed: 08/22/23 Fall risk assessment: No Falls in past year Last assessed Fall Risk: 04/13/24 Dental Screening Dental Screen Date: 04/13/24 Did you have a dental visit in the last 12 months?: No Did you have a dental problem in the last 6 months where you did not have access to dental care?: No Was dental information given to patient?: Patient has dentist HPI PE HPI Details Patient is a 69-year-old male here today for a follow-up visit.? Patient has a past medical history significant for GERD, BPH, hypothyroidism. -Concern-> Had COVID last month , still having some short of breath and fatigue. He has been suffering with right eye pain worse when trying to focus on reading or watching television. Has seen his eye doctor and was told he does not have a particular eye disease. He does not report any particular vision disruption. Has seen Neurology and was started on carbamazepine though does not feel it was effective on reducing his right eye pain. Of note did get a CT of his sinuses in 2021 that did show right-sided maxillary cyst. Did follow-up with ENT and discuss surgery though did not schedule. .. Hypothyroidism: Patient continues on levothyroxine 75 mcg with good effect and TSH has been stable. . Patient also history of BPH and was followed by urologist in [place].? He has been taking tamsulosin though has concerns about side effect of ejaculations problems which he has been experiencing.? He would like to see Urology to discuss this.? Colorectal cancer screening: Done in 2022, normal repeat 10 years. Of note does have hemorrhoids that still continue to cause him rectal pain when passing stool. He denies any bleeding Vaccines: Up-to-date with COVID vaccine, shingles vaccine, need Td-declines today, needs pneumonia and considering flu vaccine PFSH Medical History Ocular pain, right eye Ocular pain, right eye Polyarthralgia BPH (benign prostatic hyperplasia) Hypothyroid Surgical History History of esophagogastroduodenoscopy (EGD) Hx of colonoscopy History of inguinal hernia repair History of hemorrhoidectomy Family History Mother No problems noted. Father No problems noted. Social History Housing: House Are you a primary respiratory care practitioner to a significant other at home: No Do you presently have visiting nurse or other home services: No Alcohol intake: never Patient Tobacco Use Status: Never used Tobacco e-Cigarette/Vaping Use: Never Used Second Hand Smoke Exposure: No service: No Current occupational status: previously employed and retired Current occupation: used to work in [employer] retired 2019 Cognitive needs: No Hearing needs: No Vision needs: Yes (glasses) Questionnaire Thrive Questionnaire Date Thrive assessed: 08/22/23 AYESHA-7 AMB Questionnaire AYESHA-7 Date AYESHA - 7 assessed: 08/22/23 Source: Developed by Drs. Tyson Hagan, Zaida Pierre, Elroy Tan and colleagues, with an educational binta from [employer]. Review of Systems Const Denies body aches, Denies chills, Denies excessive sweating, Denies fatigue, Denies fever(s) and Denies headache(s) Eyes Denies blurry vision ENT Denies dysphagia, Denies vertigo, Denies dizziness, Denies headache(s), Denies hearing loss and Denies tinnitus Card Denies chest pain, Denies chest pain with activity, Denies syncope, Denies irregular heart rhythm and Denies dyspnea Resp Denies chest congestion, Denies cough, Denies hemoptysis, Denies dyspnea and Denies wheezing GI Denies abdominal pain, Denies melena, Denies hematochezia, Denies coffee ground emesis, Denies dysphagia, Denies diarrhea, Denies nausea and Denies vomiting Denies difficulty urinating, Denies dysuria, Denies urinary frequency, Denies urinary hesitancy and Denies urinary urgency Musc Denies arthralgias, Denies limited range of motion, Denies muscle cramps and Denies muscle weakness Skin/Breast Denies rash and Denies skin ulcer Neuro Denies Abnormal speech present, Denies confusion, Denies vertigo, Denies dizziness, Denies syncope, Denies headache(s), Denies memory loss and Denies seizure-like activity Psych Denies anxiety, Denies confusion, Denies depression, Denies memory loss, Denies panic attacks and Denies paranoia Endo Denies excessive sweating, Denies fatigue, Denies flushing, Denies polydipsia and Denies polyuria Aller/Immun Denies wheezing Physical exam (Primary Care) Vital Signs: Last Vital Signs BP 120/78 04/13/24 08:35 BMI result Body Mass Index 27.1 Tobacco/Smoking Status: Tobacco use Status Tobacco use date assessed 08/22/23 04/13/24 08:36 Patient Tobacco Use Status Never used Tobacco 04/13/24 08:36 e-Cigarette/Vaping Use Never Used 04/13/24 08:36 Thrive Assessment: Date of Thrive Assessment Date Thrive assessed 08/22/23 04/13/24 08:36 Const General: cooperative, comfortable, no acute distress, alert and awake; No confusion Orientation/consciousness: oriented to person, oriented to place, patient oriented x3 and No confusion HENMT Head: Yes normocephalic Ears: external ears normal and TM's normal bilaterally Face and sinus: No sinus tenderness Mouth: Normal oral and palatal mucosa present and tongue normal Teeth and gingiva: dentition normal and gingiva normal Throat: Yes posterior oropharynx normal, Yes tonsils normal and Yes uvula midline Eyes Conjunctivae: conjunctivae normal Sclerae: sclerae normal Pupils: Equal, round and reactive pupils present EOM: EOMs intact bilaterally Direct Ophthalmoscopy: No no photophobia Neck Neck: Yes no lymphadenopathy, No tender and Yes no JVD Thyroid: Thyroid normal Carotids: no bruits Chest Chest palpation & inspection: no tenderness Resp Effort & Inspection: normal respiratory effort, no audible wheezes, not labored and no stridor Auscultation: no crackles, no rales, no rhonchi and no wheezes Cardio Jugular venous distension: no JVD Rate: regular rate, not bradycardic and not tachycardic Rhythm: regular rhythm Bruits: no carotid bruits Peripheral pulses: Peripheral pulses 2+ throughout GI Inspection: Yes normal to inspection, No abdominal wall ecchymosis and No visible herniation Palpation (GI): Soft to palpation, nontender, no guarding, not rigid and No hepatosplenomegaly present Auscultation: normoactive bowel sounds General: Yes no CVA tenderness Back/Spine/Pelvis Back: no CVA tenderness and No back tenderness Cervical Spine: cervical ROM normal Thoracic/Lumbar Spine: thoracic and lumbar spine normal to inspection, straight leg raise negative bilaterally, No thoraco-lumbar ROM limited and No lumbar spinal tenderness Skin Lesions: no lesions Rashes: no rashes Wounds: no wounds Neuro General: oriented to person, oriented to place, patient oriented x3, CN's II-XI intact bilaterally and No confusion Cranial nerves: Yes Equal, round and reactive pupils present and Yes Normal ac commodation reflex present Cognition (Neuro): normal cognition Speech: No Abnormal speech present Gait exam (Neuro): Normal gait present Motor exam (neuro): 5/5 motor strength present throughout Extrem Right upper extremity: full ROM; no cyanosis Left upper extremity: full ROM; no cyanosis Right lower extremity: no edema Left lower extremity: no edema Psych Appearance: grossly normal Mental Status: mental status grossly normal Affect: normal affect Attitude: cooperative Thought process: Normal thought process present Assessment and Plan Assessment & Plan (1) Annual physical exam: Code(s): Z00.00 - Encounter for general adult medical examination without abnormal findings (2) Hyperlipidemia: Code(s): E78.5 - Hyperlipidemia, unspecified Qualifiers: Hyperlipidemia type: mixed hyperlipidemia Qualified Code(s): E78.2 - Mixed hyperlipidemia Plan: Most recent fasting lipid panel showing elevated total cholesterol and LDL. 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 TSH has been stable. (4) BRAXTON (obstructive sleep apnea): Comment: Mild to moderate degree of sleep apnea. The total AHI was 16 with oxygen kate was 83% Code(s): G47.33 - Obstructive sleep apnea (adult) (pediatric) Plan: Continues to use CPAP on a nightly basis with good effect. 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 Will like to get chest x-ray to evaluate his lungs. Pulmonary exam today in office benign. (6) Rectal pain, chronic: Code(s): K62.89 - Other specified diseases of anus and rectum; G89.29 - Other chronic pain Plan: Has history symptomatic hemorrhoids. Continues to have rectal pain when passing stool. Denies any bleeding. Will like to speak with general surgeon about other options to reduce his rectal pain. Has had previous hemorrhoidectomies in the past. (7) Ocular pain, right eye: Comment: ? neuralgia Code(s): H57.11 - Ocular pain, right eye Plan: As below (8) Right maxillary sinusitis, chronic: Code(s): J32.0 - Chronic maxillary sinusitis Plan: Has a history of right sinus cyst. Continues to complain of right posterior eye pain. Unclear if this is related to sinus issue. Has tried carbamazepine though has not been effective to reduce his eye possible neuralgia neuralgia Orders: Orders Lipid Panel Today E78.2 - Mixed hyperlipidemia Comprehensive [place]. Panel Fast Today E78.2 - Mixed hyperlipidemia Complete Blood Count no Diff Today E78.2 - Mixed hyperlipidemia XR chest 2V Today U09.9 - Post COVID-19 condition, unspecified Prostate Specific Antigen Scr Today N40.0 - Benign prostatic hyperplasia without lower urinary tract symptoms, Z12.5 - Encounter for screening for malignant neoplasm of prostate TSH reflex Free T4 Today E03.8 - Other specified hypothyroidism, E06.3 - Autoimmune thyroiditis CT sinus wo IV con Today J32.0 - Chronic maxillary sinusitis Referrals General Surgery Referral G89.29 - Other chronic pain, K62.89 - Other specified diseases of anus and rectum Coding Level of Care Code Est Pt Prev Care >65y(45804) Diagnoses Annual physical exam Z00.00 Mixed hyperlipidemia E78.2 Hyperlipidemia type: mixed hyperlipidemia 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
== END 2024-04-13 09:11 | disposition home or self-care (01) ==
PROVIDERS: PCP Physician Assistant; Visit Provider Physician Assistant
DX: Z00.00 Encounter for general adult medical examination without abnormal findings (principal); E78.2 Mixed hyperlipidemia; E03.8 Other specified hypothyroidism; E06.3 Autoimmune thyroiditis; G47.33 Obstructive sleep apnea (adult) (pediatric); U09.9 Post COVID-19 condition, unspecified; K62.89 Other specified diseases of anus and rectum; G89.29 Other chronic pain; H57.11 Ocular pain, right eye; J32.0 Chronic maxillary sinusitis
CPT/HCPCS: 99397

== ENCOUNTER 2024-04-27 07:10 | Outpatient (REF) | payer OTHER, SELFPAY ==
--- NOTE | ~2024-04-27 | XR_ITS ---
EXAMINATION: XR chest 2V CLINICAL INFORMATION: U09.9 - Post COVID-19 condition, unspecified COMPARISON: None TECHNIQUE: 2 views of the chest FINDINGS: Clear lungs. No pneumothorax. No pleural effusion. Normal cardiomediastinal silhouette. XR/XR chest 2V IMPRESSION: Clear lungs. Electronically signed by: Tanna Lanza MD 05/12/2024 04:36 PM EDT RP
[2024-04-27 07:51] LABS: Hematocrit 43.6 % (42.0-52.0); Hemoglobin 14.3 g/dl (14.0-18.0); Mean Corpuscular HGB Conc 32.8 g/dl (31.0-36.0); Mean Corpuscular Hemoglobin 30.8 pg (27.0-33.0); Mean Corpuscular Volume 93.8 fL (80.0-98.0); Mean Platelet Volume 10.6 fL (9.4-12.4); Platelet Count 192 X10*3/uL (160-400); Red Blood Count 4.65 X10*6/uL (4.60-5.80); Red Cell Distribution Width 12.9 % (11.0-16.0); White Blood Count 4.1 X10*3/uL (4.8-10.8)
[2024-04-27 08:24] LABS: Alanine Aminotransferase 26 U/L (0-40); Albumin Level 4.4 g/dL (3.5-5.0); Alkaline Phosphatase 117 U/L (39-117); Anion Gap 13 (12-20); Aspartate Amino Transferase 18 U/L (5-37); Bilirubin Total 0.7 mg/dL (0.0-1.0); Blood Urea Nitrogen 20 mg/dL (9-16); Calcium 9.5 mg/dL (8.4-10.2); Carbon Dioxide 25 mmol/L (22-29); Chloride 108 mmol/L (96-108); Cholesterol 264 mg/dL (<200); Estimated Glomerular Filt Rate > 60; Glucose Fasting 92 mg/dL (60-99); HDL Cholesterol 65 mg/dL (>40); LDL Cholesterol Calculated 170 mg/dL (<100); Potassium 4.1 mmol/L (3.3-5.1); Sodium 142 mmol/L (135-145); Total Protein 7.2 g/dL (6.5-8.0); Triglycerides 146 mg/dL (<150)
[2024-04-27 08:42] LABS: Prostate Specific Antigen Scr 1.19 ng/mL (<0.05-4.0); TSH reflex Free T4 1.79 uIU/mL (0.32-4.0)
== END 2024-04-27 07:11 | disposition home or self-care (01) ==
LOC: HO.XRAY 07:10
PROVIDERS: PCP Physician Assistant; Visit Provider Physician Assistant
DX: U09.9 Post COVID-19 condition, unspecified (principal); N40.0 Benign prostatic hyperplasia without lower urinary tract symptoms; Z12.5 Encounter for screening for malignant neoplasm of prostate; E06.3 Autoimmune thyroiditis; E03.8 Other specified hypothyroidism; E78.2 Mixed hyperlipidemia
CPT/HCPCS: 36415; 71046; 80053; 80061; 84153; 84443; 85027

== ENCOUNTER 2024-06-04 09:45 | Outpatient (REF) | payer OTHER, SELFPAY ==
--- NOTE | ~2024-06-04 | CT_ITS ---
EXAMINATION: CT SINUS WITH CONTRAST CLINICAL INFORMATION: Chronic posterior eye pain, history of maxillary sinus cyst. Evaluate for large maxillary cyst. COMPARISON: None available. TECHNIQUE: Spiral noncontrast CT of the paranasal sinuses and maxillofacial region was performed in axial plane after the administration of 85 cc Omnipaque 350. Examination was carried out from the inferior maxilla to the mid temporal parietal bones, just above the petrous ridges. Sagittal, coronal, and thin section axial reformatted images were reconstructed from the axial data set. This CT examination was performed using dose optimization techniques as appropriate, variously including the following: *Automated exposure control *Adjustment of mA and/or kV according to patient size (this includes techniques or standardized protocols for targeted exams where dose is matched to indication/reason for exam; i.e. extremities or head) *Use of iterative reconstruction technique DLP: 92 mGy-cm FINDINGS: POSTOPERATIVE FINDINGS: -None. MAXILLARY DENTAL FINDINGS: -No active dental disease identified. NASAL CAVITY: -Normally aerated. No masses. -Minimal left deviation and nasal septum without spur. TURBINATES: -Middle turbinates have normal morphology. -Inferior turbinates have normal morphology. -Superior turbinates have normal morphology. MAXILLARY SINUSES: -There is a small amount of mucosal thickening with associated small mucous retention cyst in the dependent left maxillary antrum. This mucous retention cyst measures approximately 0.5 x 1.0 cm, with no significant opacification of the left maxillary antrum more mass effect upon the left orbit. -The left maxillary ostium is patent but mildly narrowed by mucosal thickening. -Trace mucosal thickening right maxillary sinus. -The right maxillary ostia is patent but mildly narrowed by mucosal thickening. ETHMOID SINUSES: -Minimal scattered mucosal thickening bilaterally. FRONTAL SINUSES: -Minimal mucosal thickening bilaterally. The frontal recesses are mildly narrowed patent. SPHENOID SINUSES: -Normally pneumatized bilaterally. There is pneumatization of the left pterygoid process. -The sphenoethmoidal recesses are patent bilaterally. ADDITIONAL FINDINGS: -Globes and orbital contents appear normal. -Mastoids and tympanic cavities are normally aerated. -No facial soft tissue abnormality. -Imaged intracranial contents demonstrate no mass effect, edema, or abnormal enhancement. CT/CT sinus w IV con IMPRESSION: 1. Minimal paranasal sinus disease, most notable left maxillary sinus. Small mucous retention cysts present in the dependent aspect. 2. Both orbits image normally. 3. Additional findings as detailed. Electronically signed by: Phillip Rodriguez MD 07/30/2024 01:35 PM NITH[facility] SIBLEY
[2024-06-04] MEDS: iohexoL 350 MG/ML 100 ML INFUS..BTL 85 ML IV (10:28)
[2024-06-04 16:51] LABS: Creatinine POC 0.9 mg/dL (0.5-1.4); GFR POC > 60
== END 2024-06-04 09:46 | disposition home or self-care (01) ==
LOC: HO.CT 09:45
PROVIDERS: PCP Physician Assistant; Visit Provider Physician Assistant
DX: J32.0 Chronic maxillary sinusitis (principal)
CPT/HCPCS: 70487; 82565; Q9967

== ENCOUNTER → 2024-06-04 09:47 | Outpatient (BNV) | payer OTHER, SELFPAY | PROVIDERS: PCP Physician Assistant; Visit Provider Radiology Diagnostic Radiology | DX: M27.40 Unspecified cyst of jaw (principal); H57.13 Ocular pain, bilateral | CPT/HCPCS: 70487 ==

== ENCOUNTER 2024-06-30 08:14 | Outpatient (AMB) | payer OTHER, SELFPAY ==
--- NOTE | 2024-06-30 08:31 | A.OFFVIS_ITS ---
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 Accompanied by: Self / Same As Patient Allergies aspirin Adverse Reaction (Intermediate, Verified 06/30/24 08:34) blood in stools diclofenac Adverse Reaction (Intermediate, Verified 06/30/24 08:34) blood in stools NSAIDS (Non-Steroidal Anti-Inflamma Adverse Reaction (Intermediate, Verified 06/30/24 08:34) Blood in stools Medication List - Last Reconciled 06/30/24 by Siobhan Dash MD alfuzosin ER 10 mg PO DAILY carbamazepine ER 100 mg PO BID cetirizine (Allergy Relief (cetirizine)) 10 mg PO DAILY PRN CPAP (CPAP Machine/Device) As directed fluticasone propionate 50 mcg/actuation sprays intranasal levothyroxine 75 mcg PO DAILY Do you need a note to return to daycare/school/sports/work: No HPI Comments Details: 68 y/o male patient presents for follow up of BRAXTON on CPAP and Right eye pain for 10-20 years. He was started on tegretol XR 100mg bid and he is not sure it helped so he stopped it. He was given 2 eye drops by his ophthalmologists and he thinks it is helping. He says the eye is pain is triggered by bending his head or when he applies pressure in his right forehead. He has seen multiple ophthalmologists . He was seen by Dr. Garza and suggested that it could be trigeminal neuralgia.He says the pain is constant and more when he strains his eyes watching TV cell phone etc.. He says it is a dull constant pain. He feels more refreshed in the morning and daytime tiredness has improved with CPAP He is on APAP [id number]. The usage days 100%, and average usage hours 8 hours. The max pressure is 9.7 and the residual AHI was 2.4/hr. [facility] Medical History Ocular pain, right eye Ocular pain, right eye Polyarthralgia BPH (benign prostatic hyperplasia) Hypothyroid Surgical History History of esophagogastroduodenoscopy (EGD) Hx of colonoscopy History of inguinal hernia repair History of hemorrhoidectomy Family History Mother No problems noted. Father No problems noted. Social History Housing: House Are you a primary manager long term care to a significant other at home: No Do you presently have visiting nurse or other home services: No Alcohol intake: never Patient Tobacco Use Status: Never used Tobacco e-Cigarette/Vaping Use: Never Used Second Hand Smoke Exposure: No service: No Current occupational status: previously employed and retired Current occupation: used to work in [employer] retired 2019 Cognitive needs: No Hearing needs: No Vision needs: Yes (glasses) Review of Systems ENT Reports Normal hearing present Neuro Reports Normal hearing present Physical Exam Vital Signs: Last Vital Signs Pulse 68 06/30/24 08:32 BP 122/70 06/30/24 08:32 Pulse Ox 97 06/30/24 08:32 Oxygen Delivery Method Room Air 06/30/24 08:32 Const General: cooperative Nutritional Appearance: average body habitus Orientation/consciousness: patient oriented x3 Resp Effort & Inspection: normal respiratory effort and able to speak in complete sentences Neuro General: patient oriented x3, gait normal and moves all extremities Cranial nerves: Yes Normal facial strength present, Yes Symmetric palate elevation present, Yes Normal hearing present, Yes Ability to bilaterally rotate head present and Yes Ability to bilaterally elevate shoulders present Cognition (Neuro): normal cognition Psych Appearance: grossly normal Mental Status: mental status grossly normal Speech and movement: Normal speech and movement present Assessment & Plan Assessment & Plan (1) Ocular pain, right eye: Comment: ? neuralgia Code(s): H57.11 - Ocular pain, right eye Category: Medical (2) BRAXTON (obstructive sleep apnea): Comment: Mild to moderate degree of sleep apnea. The total AHI was 16 with oxygen kate was 83% Code(s): G47.33 - Obstructive sleep apnea (adult) (pediatric) Category: Medical Plan Advised patient to continue to use APAP [id number] as patient experiences good clinical effects. Stressed compliance, use CPAP nightly and more than 4 hours. Clean mask and tubing regularly. Increase tegretol XR 200mg bid MRI brain to r.o structural lesions His ESR was 2 in 2022. Suggested to switch to a regular humidifier from a heated humidifier Orders: Orders MR head/brain wo con Today H57.11 - Ocular pain, right eye Medications: Changed From carbamazepine ER 100 mg PO BID 60 caps 2RF To carbamazepine ER 200 mg PO BID 60 caps 2RF Coding Level of Care Code Est Pt Level 4 (23159) Complex EM visit Add On G2211 Diagnoses Ocular pain, right eye H57.11 BRAXTON (obstructive sleep apnea) G47.33
[2024-06-30 08:32] VITALS: BP 122/70; PULSE 68; O2SAT 97
== END 2024-06-30 08:50 | disposition home or self-care (01) ==
PROVIDERS: PCP Physician Assistant; Visit Provider Psychiatry & Neurology Neurology
DX: H57.11 Ocular pain, right eye (principal); G47.33 Obstructive sleep apnea (adult) (pediatric)
CPT/HCPCS: 99214; G2211

== ENCOUNTER → 2024-06-30 08:14 | Outpatient (BNVA) | payer OTHER, SELFPAY | PROVIDERS: PCP Physician Assistant; Visit Provider Psychiatry & Neurology Neurology | DX: H57.11 Ocular pain, right eye (principal); G47.33 Obstructive sleep apnea (adult) (pediatric) | CPT/HCPCS: 99212 ==

== ENCOUNTER 2024-07-28 07:11 | Outpatient (REF) | payer OTHER, SELFPAY ==
[2024-07-28 08:28] LABS: Cholesterol 236 mg/dL (<200); HDL Cholesterol 61 mg/dL (>40); LDL Cholesterol Calculated 139 mg/dL (<100); Triglycerides 180 mg/dL (<150)
== END 2024-07-28 07:12 | disposition home or self-care (01) ==
LOC: HO.LAB 07:11
PROVIDERS: PCP Physician Assistant; Visit Provider Physician Assistant
DX: E78.2 Mixed hyperlipidemia (principal)
CPT/HCPCS: 36415; 80061

== ENCOUNTER → 2024-08-15 08:35 | Outpatient (BNV) | payer OTHER, SELFPAY | PROVIDERS: PCP Physician Assistant; Visit Provider Radiology Diagnostic Radiology | DX: H57.11 Ocular pain, right eye (principal) | CPT/HCPCS: 70551 ==

== ENCOUNTER 2024-08-15 08:37 | Outpatient (REF) | payer OTHER, MEDICAID, SELFPAY ==
--- NOTE | ~2024-08-15 | MR_ITS ---
CLINICAL HISTORY: H57.11 - Ocular pain, right eye Metal artifact in/near right eye? Incomplete exam. Examination: MRI brain without IV contrast Comparison: None Findings: Only a sagittal T1 FLAIR sequence was performed. Susceptibility artifact right orbital region concerning for metal related artifact. The exam was therefore terminated. No tonsillar ectopia. Impression: 1. Susceptibility artifact right orbital region concerning for metallic related artifact. The exam was therefore terminated. This document has been electronically signed by: Mathew Estrada MD on 08/15/2024 10:11:12
== END 2024-08-15 08:38 | disposition home or self-care (01) ==
LOC: HO.MRI 08:37
PROVIDERS: PCP Physician Assistant; Visit Provider Psychiatry & Neurology Neurology
DX: H57.11 Ocular pain, right eye (principal); G50.0 Trigeminal neuralgia
CPT/HCPCS: 70551

== ENCOUNTER 2024-09-02 14:14 | Outpatient (REF) | payer MEDICARE, SELFPAY ==
--- NOTE | ~2024-09-02 | XR_ITS ---
CLINICAL HISTORY: H57.11 - Ocular pain, right eye 5 view orbits Comparison: None Findings: Bones are intact. Paranasal sinuses and mastoids are clear. There is a metallic foreign body possibly in the soft tissues in the left side of the neck is IMPRESSION: 1. No acute findings This document has been electronically signed by: Honorio Jimenez MD on 09/04/2024 08:02:06
== END 2024-09-02 14:15 | disposition home or self-care (01) ==
LOC: HO.XRAY 14:14
PROVIDERS: PCP Physician Assistant; Visit Provider Physician Assistant
DX: H57.11 Ocular pain, right eye (principal)
CPT/HCPCS: 70200

== ENCOUNTER → 2024-09-02 14:21 | Outpatient (BNV) | payer MEDICARE, SELFPAY | PROVIDERS: PCP Physician Assistant; Visit Provider Specialist | DX: H57.11 Ocular pain, right eye (principal) | CPT/HCPCS: 70200 ==

== ENCOUNTER 2024-09-09 08:26 | Outpatient (AMB) | payer MEDICARE, SELFPAY ==
--- NOTE | 2024-09-09 08:32 | MHC.OFFVIS ---
Vital Signs 09/09/24 08:33 Height 5 ft 3 in Weight 160 lb BMI 28.3 BP 130/78 Blood Pressure Location Rt brachial Position Sitting Intake Visit Reasons: Trigeminal neuralgia Intake Note: Patient presents for evaluation neuralgia Allergies aspirin Adverse Reaction (Intermediate, Verified 09/09/24 08:36) blood in stools diclofenac Adverse Reaction (Intermediate, Verified 09/09/24 08:36) blood in stools NSAIDS (Non-Steroidal Anti-Inflamma Adverse Reaction (Intermediate, Verified 09/09/24 08:36) Blood in stools Medication List - Last Reconciled 09/09/24 by Siobhan Dash MD alfuzosin ER 10 mg PO DAILY cetirizine (Allergy Relief (cetirizine)) 10 mg PO DAILY PRN CPAP (CPAP Machine/Device) As directed fluticasone propionate 50 mcg/actuation sprays intranasal levothyroxine 75 mcg PO DAILY HPI Comments Details: 69 y/o male patient presents for follow up of BRAXTON on CPAP and Right eye pain for 10-20 years.He did not restart tegretol - due to side effects. MRI brain was terminated as there was a metallic foreign body in right eye . X ray orbits was inconclusive . He is seeing an eye doctor in 1hr. He has seen multiple ophthalmologists . He was seen by Dr. Garza and suggested that it could be trigeminal neuralgia.He says the pain is constant and more when he strains his eyes watching TV cell phone etc.. He says it is a dull constant pain. He feels more refreshed in the morning and daytime tiredness has improved with CPAP He is on APAP [id number]. The usage days 100%, and average usage hours 8 hours. The max pressure is 9.7 and the residual AHI was 2.4/hr. [facility], [facility] Medical History Ocular pain, right eye Ocular pain, right eye Polyarthralgia BPH (benign prostatic hyperplasia) Hypothyroid Surgical History History of esophagogastroduodenoscopy (EGD) Hx of colonoscopy History of inguinal hernia repair History of hemorrhoidectomy Family History Mother No problems noted. Father No problems noted. 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 Cognitive needs: No Hearing needs: No Vision needs: Yes (glasses) Review of Systems ENT Reports Normal hearing present Neuro Reports Normal hearing present Physical Exam Vital Signs: Last Vital Signs BP 130/78 09/09/24 08:33 BMI result Body Mass Index 28.3 Const General: cooperative Nutritional Appearance: average body habitus Orientation/consciousness: patient oriented x3 Resp Effort & Inspection: normal respiratory effort and able to speak in complete sentences Neuro General: patient oriented x3, gait normal and moves all extremities Cranial nerves: Yes Normal facial strength present, Yes Symmetric palate elevation present, Yes Normal hearing present, Yes Ability to bilaterally rotate head present and Yes Ability to bilaterally elevate shoulders present Cognition (Neuro): normal cognition Psych Appearance: grossly normal Mental Status: mental status grossly normal Speech and movement: Normal speech and movement present Assessment & Plan Assessment & Plan (1) Ocular pain, right eye: Comment: ? neuralgia ?Paroxysmal hemicrania Code(s): H57.11 - Ocular pain, right eye Category: Medical (2) BRAXTON (obstructive sleep apnea): Comment: Mild to moderate degree of sleep apnea. The total AHI was 16 with oxygen kate was 83% Code(s): G47.33 - Obstructive sleep apnea (adult) (pediatric) Category: Medical Plan Advised patient to continue to use APAP [id number] as patient experiences good clinical effects. Stressed compliance, use CPAP nightly and more than 4 hours. Clean mask and tubing regularly. will wait for ophthal opinion before scheduling CT His ESR was 2 in 2022. I will trial him on amitriptyline 10mg qhs Medications: New amitriptyline 10 mg PO BEDTIME 30 tabs 6RF Discontinued carbamazepine ER Discontinued Reason: Patient no longer taking 200 mg PO BID 60 caps 2RF Coding Level of Care Code Est Pt Level 4 (54452) Complex EM visit Add On G2211 Diagnoses Ocular pain, right eye H57.11 BRAXTON (obstructive sleep apnea) G47.33
[2024-09-09 08:33] VITALS: BP 130/78; BMI 28.3
== END 2024-09-09 08:54 | disposition home or self-care (01) ==
PROVIDERS: PCP Physician Assistant; Visit Provider Psychiatry & Neurology Neurology
DX: H57.11 Ocular pain, right eye (principal); G47.33 Obstructive sleep apnea (adult) (pediatric)
CPT/HCPCS: 99214; G2211

== ENCOUNTER → 2024-09-09 08:26 | Outpatient (BNVA) | payer MEDICARE, SELFPAY | PROVIDERS: PCP Physician Assistant; Visit Provider Psychiatry & Neurology Neurology | DX: G47.33 Obstructive sleep apnea (adult) (pediatric) (principal); H57.11 Ocular pain, right eye; Z99.89 Dependence on other enabling machines and devices | CPT/HCPCS: 99212 ==

== ENCOUNTER 2024-11-20 09:31 | Outpatient (AMB) | payer OTHER, MEDICAID, SELFPAY ==
--- NOTE | 2024-11-20 09:34 | MHC.OFFVIS ---
Vital Signs 11/20/24 09:35 Height 5 ft 3 in Weight 157 lb BMI 27.8 Intake Visit Reasons: 1yr follow up Sleep Apnea Intake Note: Patient presents follow up BRAXTON. Compliance in chart Beam Doffer Name: marvin maria Allergies aspirin Adverse Reaction (Intermediate, Verified 11/20/24 09:36) blood in stools diclofenac Adverse Reaction (Intermediate, Verified 11/20/24 09:36) blood in stools NSAIDS (Non-Steroidal Anti-Inflamma Adverse Reaction (Intermediate, Verified 11/20/24 09:36) Blood in stools Medication List - Last Reconciled 11/20/24 by FRIDA Alvarez alfuzosin ER 10 mg PO DAILY 90 days amitriptyline 10 mg PO BEDTIME cetirizine (Allergy Relief (cetirizine)) 10 mg PO DAILY PRN CPAP (CPAP Machine/Device) As directed fluticasone propionate 50 mcg/actuation sprays intranasal levothyroxine 75 mcg PO DAILY HPI Comments Details: 69-yr-old male presents for f/u of right eye pain and BRAXTON. Pt states he would like to discuss the right eye pain. He describes the right eye pain as an initial burning then becomes sharp (or like touching an open wound). Possibly the pain is a/w nasal congestion. He also has right upper trap tightness. The pain is constant at least at a 1.5/10, but once it becomes 5/10 it can persist for up to 10-11 hours. The pain is increased if he is looking/focusing on something. For instance, states he cannot watch TV for more than 30 minutes or looking at vegetables in the grocery store. Pain is not triggered by cold, light touch, talking. This started a long time ago. He denies preceding eye injury. Denies history of headache. States he has seen 3 eye doctors- and they have not found a cause. Recent brain MRI was aborted d/t ? of seeing metl in right orbital region. However f/u orbit X-ray mentioned possible left neck metal presence He has tried using a right eye patch- which does help some. He did try amitriptyline, which helped his right eye pain some and helped him sleep, howver he had to stop as it caused urinary retention. He was previously prescribed carbamazepine, but he states that he does not think he ever actually took it. As he was wary of a possible side effect he had read. He states he is using CPAP machine without difficulty. Compliance report 08/14/2024 through 11/11/2024 shows 100% usage, with average usage greater than 9 hours, and residual AHI 1 per hour. [facility] Medical History Ocular pain, right eye Ocular pain, right eye Polyarthralgia BPH (benign prostatic hyperplasia) Hypothyroid Surgical History History of esophagogastroduodenoscopy (EGD) Hx of colonoscopy History of inguinal hernia repair History of hemorrhoidectomy Family History Mother No problems noted. Father No problems noted. 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 Cognitive needs: No Hearing needs: No Vision needs: Yes (glasses) Review of Systems ENT Reports Normal hearing present Neuro Reports Normal hearing present Physical Exam Vital Signs: BMI result Body Mass Index 27.8 Const General: cooperative Nutritional Appearance: average body habitus Orientation/consciousness: patient oriented x3 Resp Effort & Inspection: normal respiratory effort and able to speak in complete sentences Neuro General: patient oriented x3, gait normal and moves all extremities Cranial nerves: Yes Normal facial strength present, Yes Symmetric palate elevation present, Yes Normal hearing present, Yes Ability to bilaterally rotate head present and Yes Ability to bilaterally elevate shoulders present Cognition (Neuro): normal cognition Psych Appearance: grossly normal Mental Status: mental status grossly normal Speech and movement: Normal speech and movement present Assessment & Plan Assessment & Plan (1) Trigeminal neuralgia: Comment: Though the differential includes alternate trigeminal autonomic cephalgia type headache Code(s): G50.0 - Trigeminal neuralgia Category: Medical (2) BRAXTON (obstructive sleep apnea): Comment: Mild to moderate degree of sleep apnea. The total AHI was 16 with oxygen akte was 83% Code(s): G47.33 - Obstructive sleep apnea (adult) (pediatric) Category: Medical Plan Patient has stopped amitriptyline due to urinary retention. Advise patient to trial carbamazepine again, we will start with carbamazepine ER 100 mg daily at bedtime x1 week, and then increase to 100 mg twice a day. He will follow-up with patient in 7-10 days to assess his status after starting this. You will also reach out to Radiology, to clarify orbit x-ray to confirm that there is no metal present in the eye, and mentioned of possible metal in left neck- which patient is unaware of. Upon review of her etiologies response, we could consider repeating brain MRI or ordering head CTA. Future considerations: Trial of indomethacin- patient states that his rectal bleeding secondary to hemorrhoids- which would not necessarily preclude use of indomethacin. If indomethacin is not a possibility, could consider trial of memantine. Continue APAP 5-20 cm H2O EPR 2, as patient continues to have good clinical effect from use. Will follow-up upon review of above and patient to follow-up in clinic in 3-6 months or sooner prn. Medications: Changed From carbamazepine ER 100 mg PO BID 60 caps 2RF To carbamazepine ER 1 tab at bedtime x's 1 week, then 1 tab every 12 hours orally .; 30 days 60 caps 2RF Refilled carbamazepine ER 1 tab at bedtime x's 1 week, then 1 tab every 12 hours orally .; 60 caps 2RF 30 days Coding Level of Care Code Est Pt Level 4 (82406) Diagnoses Trigeminal neuralgia G50.0 BRAXTON (obstructive sleep apnea) G47.33
[2024-11-20 09:35] VITALS: BMI 27.8
--- OUTSIDE RECORDS SUMMARY | 2024-11-20 10:27 | XMS_ITS | Clinical Summary ---
Author Organization [address] [facility] Address [address] [place] [id number] Phone Care Team Providers Care Pony Edger Name Role Phone Charles Ryan DO Primary Care Provider Social History Tobacco Use Types Packs/Day Years Used Date Smoking Tobacco: Never Assessed Sex and Gender Information Value Date Recorded Sex Assigned at Not on file Legal Sex Male 4:38 PM EDT Gender Identity Not on file Sexual Orientation Not on file Plan of Treatment Upcoming Encounters Date Type Department Care Team ([facility] Contact Info) Description 02/10/2025 8:30 AM EDT Consult Orthopedic Surgery - [place] [id number] [id number] Cristian Strange, DPM [address] [id number] Health Maintenance Due Date Last Done Comments DTaP,Tdap,and Td Vaccines (1 - Tdap) 1975 Pneumococcal Vaccine: 50+ Ye ars (1 of 1 - PCV) 2006 Zoster Vaccines (1 of 2) 2006 COVID-19 Vaccine ( - 2023-2 5 season) 2024 Abdominal Aortic Aneurysm (A AA) Screen 06/14/2024 Cholesterol Screening (Lipid Panel) 06/14/2024 Colorectal Cancer Screening: Colonoscopy 06/14/2024 Depression Screening 06/14/2024 Falls Risk Assessment 06/14/2024 Hepatitis C Screening 06/14/2024 Medicare Annual Wellness Visit 06/14/2024 Social Influencers of Health Screening 06/14/2024 Influenza Vaccine (Season Ended) 2025 RSV Immunization Adult Patie nts (1 - 1-dose 75+ series) 2031 HIB Vaccines Aged Out No longer eligi ble based on patient's age to complete this topic HPV Vaccines Aged Out No longer eligi ble based on patient's age to complete this topic Hepatitis A Vaccines Aged Out No long er eligible based on patient's age to complete this topic Hepatitis B Vaccines Aged Out No long er eligible based on patient's age to complete this topic IPV Vaccines Aged Out No longer eligi ble based on patient's age to complete this topic MMR Vaccines Aged Out No longer eligi ble based on patient's age to complete this topic Meningococcal ACWY Vaccine Aged Out N o longer eligible based on patient's age to complete this topic Meningococcal B Vacine Aged Out No lo nger eligible based on patient's age to complete this topic RSV Immunization Patients Un kaitlin 20 months Aged Out No longer eligible b ased on patient's age to complete this topic Varicella Vaccines Aged Out No longer eligible based on patient's age to complete this topic Insurance [employer] Care Teams Pony Edger Relationship Specialty Start Date End Date Charles Ryan DO [address] [place] [phone] PCP - General Internal Medicine 11/17/24
--- OUTSIDE RECORDS SUMMARY | 2024-11-20 10:27 | XMS_ITS | Data Portability ---
Author Organization [place] [facility] Former[facility], Allergy Address [address] [place] [id number] Care Team Providers Care Network Administrator Name Role Phone RICHA COOPER Primary Care Provider Assessment No assessment recorded. Plan of Treatment Reminders Order Date Submit Date Provider Last Modified By Organization Details Last Modified Time Details Appointments None record ed. Lab unlist ed lab - allerg ens, zone 1 2024 025 ARIEL [facility] (Centralized Electronic Ordering - All Locations), Patient Can Go To The Location Of Their Choice, 15:16:27 nettle IgE Ab, serum 2024 025 jschreNextPotentialstein [facility] (Centralized Electronic Ordering - All Locations), Patient Can Go To The Location Of Their Choice, 16:57:39 bahia grass IgE Ab, quanti tative , serum 2024 025 jschre[facility]Potentialstein [facility] ([facility]ized [facility] Ordering - All Locations), Patient Can Go To The Location Of Their Choice, 16:57:39 bermud a grass ige, serum 2024 025 jschreNextPotentialstein [facility] ([facility]ized [facility] Ordering - All Locations), Patient Can Go To The Location Of Their Choice, 16:57:39 englis h planta in ige, serum 2024 025 jschre[facility]Potentialstein [facility] ([facility] Ordering - All Locations), Patient Can Go To The Location Of Their Choice, 16:57:39 ige, total, serum 2024 025 ELLENDALE [facility] (Centralized Electronic Ordering - All Locations), Patient Can Go To The Location Of Their Choice, [id number] 15:16:28 Referral None record ed. Procedures None record ed. Surgeries None record ed. Imaging None record ed. Medication Orders azelas ninoska 137 mcg (0.1 %) nasal spray [address] [facility][id number], [address] [place], [address], 09:18:53 flutic asone propio hever 50 mcg/ac tuatio n nasal spray, suspen ryan [address] [facility][id number], [address] [place], [address], 09:18:53 Patient TargetsNo targets recorded. Patient InstructionsNo instructions recorded. Reason for Referral None Reported. Results Created Date Observation Date Name Description Value Unit Range Abnormal Flag Note LastModifiedBy Organization Detail LastModifiedTime 08/26/1908/26/2024 BRENDEN RAMIREZ, ZONE 1 class description Commen t Level s of Speci fic IgE Class Descr iptio n of Class ----- ----- ----- ----- ----- -- ----- ----- ----- ----- ----- < 0.10 0 Negat qamar 0.10 - 0.31 0/I Equiv ocal/ Low 0.32 - 0.55 I Low 0.56 - 1.40 II Moder ate 1.41 - 3.90 III High 3.91 - 19.00 IV Very High 19.01 - 100.0 0 V Very High >100. 00 Very High Not Available [facility] ([facility]) [address] [facility], [place], [address], 08/30/2024 15:16:27 08/26/1908/29/2024 ALLER GENJuma, ZONE 1 X451-JdO D pteronyssinu s 0.14 kU/L class 0/I abnormal Not Available [facility] ([facility]) [address] [place], [address], 08/30/2024 15:16:27 08/26/19 25 08/29/2024 ALLER GENS, ZONE 1 X810-UmI D farinae 0.15 kU/L class 0/I abnormal Not Available [facility] ([facility]) [address] [place], [address], 08/30/2024 15:16:27 08/26/19 25 08/29/2024 ALLER GENS, ZONE 1 I966-UrH CAT dander <0.10 kU/L class 0 Not Available [facility] ([facility]) [address] [place], [address], 08/30/2024 15:16:27 08/26/19 25 08/29/2024 ALLER GENS, ZONE 1 P765-GdX dog dander <0.10 kU/L class 0 Not Available [facility] ([facility]) [address] [place], [address], 08/30/2024 15:16:27 08/26/19 25 08/29/2024 ALLER GENS, ZONE 1 z103-BcY bermuda grass <0.10 kU/L class 0 Not Available [facility] ([facility]) [address] [place], [address], 08/30/2024 15:16:27 08/26/19 25 08/29/2024 ALLER GENS, ZONE 1 j172-HhD bluegrass[facility] <0.10 kU/L class 0 Not Available [facility] ([facility]) [address] [place], [address], 08/30/2024 15:16:27 08/26/19 25 08/29/2024 ALLER GENS, ZONE 1 u915-XjZ bahia grass <0.10 kU/L class 0 Not Available [facility] ([facility]) [address] [facility] [place], [address], 08/30/2024 15:16:27 08/26/19 25 08/29/2024 ALLER GENS, ZONE 1 W854-OhC cockroach, dutch <0.10 kU/L class 0 Not Available [facility] ([facility]) [address] [facility] [place], [address], 08/30/2024 15:16:27 08/26/19 25 08/29/2024 ALLER GENS, ZONE 1 W637-QiU penicillium chrysogen <0.10 kU/L class 0 Not Available [facility] ([facility]) [address] [facility] [place], [address], 08/30/2024 15:16:27 08/26/19 25 08/29/2024 ALLER GENS, ZONE 1 M562-FtN cladosporium herbarum <0.10 kU/L class 0 Not Available [facility] ([facility]) [address] [facility] [place], [address], 08/30/2024 15:16:27 08/26/19 25 08/29/2024 ALLER GENS, ZONE 1 X131-GfU aspergillus fumigatus <0.10 kU/L class 0 Not Available [facility] ([facility]) [address] [facility] [place], [address], 08/30/2024 15:16:27 08/26/19 25 08/29/2024 ALLER GENS, ZONE 1 D030-WqZ mucor racemosus <0.10 kU/L class 0 Not Available [facility] ([facility]) [address] [facility] [place], [address], 08/30/2024 15:16:27 08/26/19 25 08/29/2024 ALLER GENS, ZONE 1 E478-AuT alternaria alternata <0.10 kU/L class 0 Not Available [facility] ([facility]) [address], [place], [address], 08/30/2024 15:16:27 08/26/19 25 08/29/2024 ALLER GENS, ZONE 1 N754-KpL stemphylium herbarum <0.10 kU/L class 0 Not Available [facility] ([place] [facility]) [address], [place], [address], 08/30/2024 15:16:27 08/26/19 25 08/29/2024 ALLER GENS, ZONE 1 O725-WtV common silver birch 0.25 kU/L class 0/I abnormal Not Available [facility] ([facility]) [address] [facility], [place], [address], 08/30/2024 15:16:27 08/26/19 25 08/29/2024 ALLER GENS, ZONE 1 N127-QsY oak, white 0.31 kU/L class 0/I abnormal Not Available [facility] ([place] [facility]) [address] [facility], [place], [address], 08/30/2024 15:16:27 08/26/19 25 08/29/2024 ALLER GENS, ZONE 1 Q666-AmI elm, dutch <0.10 kU/L class 0 Not Available [facility] ([place] [facility]) [address] [facility], [place], [address], 08/30/2024 15:16:27 08/26/19 25 08/29/2024 ALLER GENS, ZONE 1 I487-AfS mariam, white <0.10 kU/L class 0 Not Available [facility] ([place] [facility]) [address] [facility] [place], [address], 08/30/2024 15:16:27 08/26/19 25 08/29/2024 ALLER GENS, ZONE 1 P082-LxS maple/box elder 0.30 kU/L class 0/I abnormal Not Available [facility] ([place] [facility]) [address] [facility], [place], [address], 08/30/2024 15:16:27 08/26/19 25 08/29/2024 ALLER GENS, ZONE 1 L758-UaH hazelnut tree <0.10 kU/L class 0 Not Available [facility] ([place] [facility]) [address], [place], [address], 08/30/2024 15:16:27 08/26/19 25 08/29/2024 ALLER GENS, ZONE 1 M516-QcV hickory, white <0.10 kU/L class 0 Not Available [facility] ([place] [facility]) [address], [place], [address], 08/30/2024 15:16:27 08/26/19 25 08/29/2024 ALLER GENS, ZONE 1 M128-XeX white mulberry <0.10 kU/L class 0 Not Available [facility] ([place] [facility]) [address], [place], [address], 08/30/2024 15:16:27 08/26/19 25 08/29/2024 ALLER GENS, ZONE 1 K965-LjZ cedar, mountain <0.10 kU/L class 0 Not Available [facility] ([place] [facility]) [address], [place], [address], 08/30/2024 15:16:27 08/26/19 25 08/29/2024 ALLER GENS, ZONE 1 K617-GxM ragweed, short <0.10 kU/L class 0 Not Available [facility] ([place] [facility]) [address] [place], [address], 08/30/2024 15:16:27 08/26/19 25 08/29/2024 ALLER GENS, ZONE 1 S293-RwO plantain, finnish <0.10 kU/L class 0 Not Available [facility] ([place] [facility]) [address], [place], [address], 08/30/2024 15:16:27 08/26/19 25 08/29/2024 ALLER GENS, ZONE 1 S534-YhV pigweed, common <0.10 kU/L class 0 Not Available [facility] ([facility]) [address] [place], [address], 08/30/2024 15:16:27 08/26/19 25 08/29/2024 ALLER GENS, ZONE 1 R929-BeE sheep sorrel <0.10 kU/L class 0 Not Available [facility] ([facility]) [address] [place], [address], 08/30/2024 15:16:27 08/26/19 25 08/29/2024 ALLER GENS, ZONE 1 Z604-XwD nettle <0.10 kU/L class 0 Not Available [facility] ([facility]) [address] [place], [address], 08/30/2024 15:16:27 08/26/19 25 08/30/2024 ALLER GENS, ZONE 1 P872-NiG mugwort <0.10 kU/L class 0 Not Available [facility] ([facility]) [address] [place], [address], 08/30/2024 15:16:27 08/26/19 25 08/29/2024 IMMUN OGLOB ULIN E, TOTAL immunoglobul in E, total 13 IU/mL 6-495 Not Available [facility]) [address] [place], [address], 08/30/2024 15:16:28 Result Notes None recorded. Problems Name Problem SNOMED Code Status Onset Date Resolution Date Notes Provider Name and Address Organization Details Recorded Time Itching of skin 209739039 Active 2021 Other pruritus; Note: Date Diagnosed : 04/27/2022 10:02 AM (L29.8) Not Available [facility] 03:22:28 Obstructi ve sleep apnea syndrome 54060997 Active 2022 Obstructi ve sleep apnea (adult) (pediatri c); Note: Date Diagnosed : 02/08/2023 8:42 AM (G47.33) Not Available [facility] 4 03:22:27 Hypertrop hy of nasal turbinate s 79545195 Active 2021 Hypertrop hy of nasal turbinate s; Note: Date Diagnosed : 10/14/2015 8:40 AM (J34.3) Not Available [facility] 4 03:22:27 Deviated nasal septum 574737956 Active 2021 Deviated nasal septum; Note: Date Diagnosed : 10/14/2015 8:40 AM (J34.2) Not Available [facility] 4 03:22:27 Allergic rhinitis 76080385 Active 2024 TARIQ MARQUES MD [address] [place] [address],[place] [address], [place], [address] , [facility] 5 09:16:07 Seasonal allergic rhinitis 986669322 Active 2024 TARIQ MARQUES MD [address] [place] [address],[place] [address], [place], [id number] , [facility] 5 09:17:27 Non-aller gic rhinitis 66305791006 1 Active 2024 TARIQ MARQUES MD [address] [place] [address],[place] [address], [place], [address] , [facility] 5 09:17:27 Problem Notes None recorded. Medical Equipment None Reported. Allergies Allergen ID Allergen Name Allergen Category Reaction Reaction Severity Criticality Documentation Date Start Date Code Code System Note Provider Name and Address Organization Details Recorded Time 553603 aspirin medicatio n other Not available Not available 12/31/2023 1191 RxNorm React ion: Unkno wn; Not Available [facility] 4 01:25:41 Medications Name Sig Start Date Stop Date Status Note LastModified by Organization Details LastModified Time prednison e 10 mg tablet 02/08 completed Medicati on ID: [id number] B rand Name: predniso ne Send Method: E-Prescr ibed Sub s Allowed: subs OK Medic ationGen ericName : predniso ne Not Available Not Available Not Available oxybutyni n chloride ER 10 mg tablet,ex tended release 24 hr TAKE 1 TABLET BY MOUTH EVERY DAY active Not Available Not Available No t Available azithromy marlene 250 mg tablet 04/27 completed Medicati on ID: [id number] B rand Name: azithrom ycin Sen d Method: E-Prescr ibed Sub s Allowed: subs OK Medic ationGen ericName : azithrom ycin Not Available Not Available Not Available levothyro xine 75 mcg tablet TAKE 1 TABLET BY MOUTH DAILY. active Not Available Not Available No t Available ketorolac 0.5 % eye drops INSTILL 1 DROP INTO BOTH EYES 4 TIMES A DAY active Not Available Not Available No t Available hydrocort isone 2.5 % topical cream with perineal applicato r 02/08 completed Medicati on ID: [id number] B rand Name: hydrocor tisone S end Method: E-Prescr ibed Sub s Allowed: subs OK Medic ationGen ericName : hydrocor tisone Not Available Not Available Not Available prednisol one acetate 1 % eye drops,ruddy pension 02/08 completed Medicati on ID: [id number] B rand Name: predniso lone acetate Send Method: E-Prescr ibed Sub s Allowed: subs OK Medic ationGen ericName : predniso lone acetate Not Available Not Available Not Available tamsulosi n 0.4 mg capsule active Medicati on ID: [id number] B rand Name: tamsulos in Send Method: E-Prescr ibed Sub s Allowed: subs OK Medic ationGen ericName : tamsulos in Not Available Not Available Not Available amitripty line 10 mg tablet TAKE 1 TABLET BY MOUTH EVERYDAY AT BEDTIME active Not Available Not Available No t Available diclofena c potassium 50 mg tablet active Medicati on ID: [id number] B rand Name: diclofen ac potassiu m Send Method: E-Prescr ibed Sub s Allowed: subs OK Medic ationGen ericName : diclofen ac heberiu m Not Available Not Available Not Available omeprazol e 20 mg capsule,d elayed release active Medicati on ID: [id number] B rand Name: omeprazo le Send Method: E-Prescr ibed Sub s Allowed: subs OK Medic ationGen ericName : omeprazo le Not Available Not Available Not Available flurbipro fen 100 mg tablet 02/08 completed Medicati on ID: [id number] B rand Name: flurbipr ofen Sen d Method: E-Prescr ibed Sub s Allowed: subs OK Medic ationGen ericName : flurbipr ofen Not Available Not Available Not Available bisacodyl 5 mg tablet,de layed release active Medicati on ID: [id number] B rand Name: bisacody l Send Method: E-Prescr ibed Sub s Allowed: subs OK Speci al Instruct ion: TAKE 2 TABLETS BY MOUTH AT 12:00PM THE DAY BEFORE YOUR PROCEDUR E. Medic ationGen ericName : bisacody l Not Available Not Available Not Available gabapenti n 100 mg capsule TAKE 1 CAPSULE ORALLY 2 TIMES A DAY FOR 30 DAYS active Not Available Not Available No t Available azelastin e 137 mcg (0.1 %) nasal spray [place] 2 sprays twice a day by intranas al route. active Not Available Not Available No t Available polyethyl wayne glycol 3350 17 gram/dose oral powder 08/26 completed Medicati on ID: [id number] B rand Name: polyethy adry glycol 3350 Sen d Method: E-Prescr ibed Sub s Allowed: subs OK Speci al Instruct ion: MIX ENTIRE BOTTLE DIRECTED AND TAKE DIRECTED BY MOUTH THE DAY BEFORE YOUR PROCEDUR E. Medic ationGen ericName : polyethy adry glycol 3350 Not Available Not Available Not Available albuterol sulfate HFA 90 mcg/actua tion aerosol inhaler active Medicati on ID: [id number] B rand Name: albutero l sulfate Send Method: E-Prescr ibed Sub s Allowed: subs OK Medic ationGen ericName : albutero l sulfate Not Available Not Available Not Available fluticaso ne propionat e 50 mcg/actua tion nasal spray,ruddy pension [place] 1 spray every day by intranas al route. active Not Available Not Available No t Available naproxen 375 mg tablet,de layed release 02/08 completed Medicati on ID: [id number] B rand Name: naproxen Send Method: E-Prescr ibed Sub s Allowed: subs OK Medic ationGen ericName : naproxen Not Available Not Available Not Available tobramyci n 0.3 %-dexamet hasone 0.1 % eye drops,ruddy pension INSTILL 1 DROP INTO RIGHT EYE TWICE A DAY active Not Available Not Available No t Available alfuzosin ER 10 mg tablet,ex tended release 24 hr TAKE 1 TABLET BY MOUTH EVERYDAY AT BEDTIME active Not Available Not Available No t Available tadalafil 5 mg tablet 08/26 completed Medicati on ID: [id number] B rand Name: tadalafi l Send Method: E-Prescr ibed Sub s Allowed: subs OK Speci al Instruct ion: TAKE 1 TABLET BY MOUTH EVERY DAY Medi cationGe nericNam e: tadalafi l Not Available Not Available Not Available carbamaze pine ER 100 mg capsule,e xtended release [id number] r TAKE 1 CAPSULE BY MOUTH TWICE A DAY active Not Available Not Available No t Available carbamaze pine ER 200 mg capsule,e xtended release veemah24h r TAKE 1 CAPSULE BY MOUTH TWICE A DAY active Not Available Not Available No t Available diclofena c 1 % topical gel active Medicati on ID: [id number] B rand Name: diclofen ac sodium S end Method: E-Prescr ibed Sub s Allowed: subs OK Medic ationGen ericName : diclofen ac sodium Not Available Not Available Not Available Vitals Date Recorded Body height Body mass index (BMI) Body weight Provider Name and Address Organization Details Last Updated DateTime 08/26/2024 160.02 cm 26.6 kg/m2 00163.86 g Cheryl Dubois [place] [facility] 08/26/2024 08:58:00 Social History None recorded. Functional Status None recorded. Mental Status None recorded. Family History Nothing Reported. Medical History No medical history recorded. Past Encounters Encounter ID Performer Location Encounter Start Date Encounter Closed Date Diagnosis/Indication Diagnosis SNOMED-CT Code Diagnosis ICD10 Code Diagnosis Note [id number] TARIQ MARQUES [facility] [address] [id number] 08/26/2024 08:46:58 08/26/2024 09:21:30 Deviated nasal septum 027605677 J34.2 Hypertroph y of nasal turbinates 91326415 J34.3 Allergic rhinitis 207694 04 J30.9 Patient with moderate septal deviation to the right side with compensato ry left turbinate hypertroph y. CT scan shows only mild mucosal thickening and retention cyst. I think most of his symptoms are due to underlying allergy. We will check a RAST panel as his testing was done outside. If there is significan t allergy we may need to consider immunother apy if the 2 sprays are not helpful. Health Concerns Section Related Observation LastModified by Organization Detai ls LastModified Time None Recorded Concern Status LastModified by Organization Details LastModified Time None Recorded Advance Directives Directive None Recorded Payers Encounter Date Sequence Insurance Name Policy Number Policy Zuniga Covered Member ID Zuniga Member ID Guarantor Name 08/26/2024 1 [facility] - MEDICARE PREFERRED (MEDICARE REPLACEMENT HMO) SCOIND Grey Dumas Sr [id number] Grey Dumas Sr Notes Date Note Type Note Provider Name and Address Organization Details Recorded Time 08/26/2024 text/html Hx of septal deviation and turb hypertrophy Recent CT small maxillary retention cyst and minimal mucosal thickening. Feels congestion alternating sidesHx of dust and mold allergy --tried SCIT for 6 months prior to pandemic..Didn't want to keep going every week. Presently not using any INS TARIQ CHAVEZ MD [address] [place] [address], [phone], [place] [facility] 08/26/2024 09:19:22
== END 2024-11-20 10:18 | disposition home or self-care (01) ==
LOC: HO.HSMS 09:32
PROVIDERS: PCP Physician Assistant; Visit Provider Nurse Practitioner Family
DX: G50.0 Trigeminal neuralgia (principal); G47.33 Obstructive sleep apnea (adult) (pediatric)
CPT/HCPCS: 99214

== ENCOUNTER → 2024-11-20 09:31 | Outpatient (BNVA) | payer MEDICARE, SELFPAY | PROVIDERS: PCP Physician Assistant; Visit Provider Nurse Practitioner Family ==